=== PATIENT | female | born 1945 | race Caucasian/White ===

== ENCOUNTER 2022-07-12 20:57 | Observation (INO) | payer MEDICARE, MEDICAID, SELFPAY ==
[2022-07-12] VITALS (11 sets, daily range): BP systolic 162–243; BP diastolic 82–132; PULSE 105–120; RESP 17–25; TEMP 37; O2SAT 94–98
--- NOTE | ~2022-07-12 | CT_ITS ---
EXAMINATION: CTA brain carotid DATE: 07/12/2022 21:46 INDICATION: stroke TECHNIQUE: Computed tomographic angiography (CTA) of the head was performed with 100 mL Omnipaque-350 intravenous contrast. Automated exposure control and iterative reconstruction technique were employe d. The dose-length product was 1098.13 mGy-cm. Maximum intensity projection and volume rendered 3D-re constructions were created by the technologist on a separate workstation. COMPARISON: CT brain, same date. FINDINGS: CTA HEAD: No large vessel occlusion, aneurysm, high flow vascular malformation, nidus or extravasation. Calcifi ed plaque involving the bilateral cavernous carotids without significant stenosis. The anterior commu nicating artery is patent. Hypoplastic/absent portion of the intradural distal right vertebral artery . Short segment noncalcified plaque in the basal artery causing mild stenosis. Small patent bilateral posterior communicating arteries. Normal appearing intracerebral veins. CTA NECK: Aortic arch and proximal great vessels: Moderate calcified and noncalcified plaque in the aortic arch and the proximal great vessels. Right common carotid, carotid bifurcation, and internal carotid artery: Calcified plaques in the righ t common carotid without significant stenosis.Calcified and noncalcified plaque at the right carotid bifurcation causing at least mild stenosis. Motion artifact at this level partially obscures the vicente enoch of the bifurcation. There is at least 33% stenosis of the proximal right internal carotid artery relative to normal distal artery lumen diameter (NASCET criteria). Left common carotid, carotid bifurcation, and internal carotid artery: Calcified and noncalcified otoniel que in the proximal left common carotid artery causes mild stenosis. Calcified plaque in the bifurcat ion causes significant stenosis.There is 66% stenosis of the proximal left internal carotid artery re lative to normal distal artery lumen diameter (NASCET criteria). Vertebral arteries: Noncalcified plaque at the origins of the bilateral vertebral arteries with moder ate bilateral stenoses. Calcified plaque in the right distal vertebral artery at the level of C2 caus es moderate stenosis. Calcified plaque in the right distal vertebral artery at the level of C1 causes mild stenosis. Left vertebral artery is dominant. Other findings: Mild emphysematous changes. Periodontal disease and dental caries. Cervical spondylos is. IMPRESSION: 1. No large vessel occlusion. 2. Moderate stenosis (66%) of the proximal left internal carotid artery relative to normal distal art delvin lumen diameter. 3. Moderate stenoses at the origin of the bilateral vertebral arteries and in the distal right verteb ral artery at the level of C2. 4. At least mild stenosis (33%) in the proximal right internal carotid artery relative to normal dist al artery lumen diameter, likely underestimated due to obscuration by motion artifact. 5. Hypoplastic/absent intradural portion of the right distal vertebral artery. 6. Noncalcified plaque in the basilar artery causing mild stenosis. Reviewed, dictated and finalized at location K. F GAUGER IMPRESSION: 1. No large vessel occlusion. 2. Moderate stenosis (66%) of the proximal left internal carotid artery relativ e to normal distal artery lumen diameter. 3. Moderate stenoses at the origin of the bilateral vertebral arteries and in t he distal right vertebral artery at the level of C2. 4. At least mild stenosis (33%) in the proximal right internal carotid artery r elative to normal distal artery lumen diameter, likely underestimated due to ob scuration by motion artifact. 5. Hypoplastic/absent intradural portion of the right distal vertebral artery. 6. Noncalcified
--- NOTE | ~2022-07-12 | CT_ITS ---
EXAMINATION: CT brain wo con DATE: 07/12/2022 21:05 INDICATION: stroke . TECHNIQUE: Computed tomography (CT) of the head was performed without intravenous contrast. The mA wa s adjusted according to patient size. Iterative reconstruction technique was employed. The dose-lengt h product was 605.33 mGy-cm. COMPARISON: None. FINDINGS: No acute intracranial hemorrhage or extra-axial fluid collection. No hydrocephalus, mass, or herniation. No acute ischemic infarct. Unremarkable dural venous sinus attenuation. No acute osseous abnormality. The aerated spaces are clear. Moderate atrophy and chronic white matter change. Atherosclerotic intracranial calcification.. Small old left pontine infarct. Old bilateral lacunar infarcts. IMPRESSION: No acute intracranial process. Results reported telephonically to Dr. Ayala by Dr. Ramirez at 9:12 PM on 07/12/2022. Reviewed, dictated and finalized at location K. WORKING [employer] IMPRESSION: No acute intracranial process. Results reported telephonically to Dr. Ayala by Dr. Ramirez at 9:12 PM on 2022.
--- NOTE | 2022-07-12 21:00 | ECG_ITS ---
Measurements Intervals [place] Rate: 111 P: 49 MS: 175 QRS: 40 QRSD: 73 T: 72 QT: 325 QTc: 443 Interpretive Statements SINUS TACHYCARDIA LOW QRS VOLTAGE IN PRECORDIAL LEADS NONSPECIFIC ST & T-WAVE ABNORMALITY- DIFFUSE LEADS BASELINE ARTIFACT- I, II, III, AVR, AVL, AVF, V4-V6 ABNORMAL ECG NO PREVIOUS ECG AVAILABLE FOR COMPARISON Electronically Signed On 07-13-2022 7:03:27 [employer]ER by Jose Carlos Lisa D.O.
[2022-07-12 21:16] LABS: Basophils Absolute Auto 0.1 K/mm3 (0.0-0.1); Basophils Percent Auto 1.2 % (0.2-1.2); Eosinophils Absolute Auto 0.4 K/mm3 (0-0.3); Eosinophils Percent Auto 4.4 % (0-4.4); Hematocrit 49.5 % (37.0-47.0); Hemoglobin 16.6 g/dL (12.0-15.0); Immature Granulocyte Absolute 0.03 K/mm3 (0.00-0.031); Immature Granulocyte Percent A 0.4 % (0-0.5); Lymphocytes Absolute Auto 1.86 K/mm3 (0.9-3.2); Lymphocytes Percent Auto 22.9 % (18.3-44.2); Mean Corpuscular HGB Conc 33.5 g/dl (32-36); Mean Corpuscular Hemoglobin 31.1 pg (26-34); Mean Corpuscular Volume 92.9 fl (80-100); Mean Platelet Volume 10.2 fl (7.4-10.4); Monocytes Absolute Auto 0.7 K/mm3 (0.1-0.6); Neutrophils Percent Auto 62.1 % (45.5-73.1); Platelet Count Result 316 k/mm3 (150-375); Red Blood Count 5.33 M/mm3 (4.2-5.4); White Blood Count 8.1 K/mm3 (4.5-10.0)
[2022-07-12 21:28] LABS: Alanine Aminotransferase 14 U/L (6-35); Albumin Level 4.6 g/dL (3.5-5.1); Alkaline Phosphatase 86 U/L (38-126); Anion Gap 6 mmol/L (8-16); Aspartate Amino Transferase 23 U/L (14-36); Bilirubin,Total 0.5 mg/dL (0.2-1.3); Blood Urea Nitrogen 11 mg/dL (7-17); Calcium 9.3 mg/dL (8.4-10.2); Carbon Dioxide 26 mmol/L (22-30); Chloride 99 mmol/L (98-107); Estimated Glomerular Filt Rate > 60; Glucose 107 mg/dL (65-110); Potassium 3.9 mmol/L (3.4-5.0); Sodium 131 mmol/L (137-145)
[2022-07-12 21:35] LABS: Appearance Urine Clear (Clear); Bilirubin Urine Negative (Negative); Blood Urine Trace-intact (Negative); Color Urine Light Yellow (Yellow); Glucose Urine UA Negative (Negative); Ketones Urine Negative (Negative); Leukocyte Esterase Ur Negative LEU/UL (Negative); Nitrate Urine Negative (Negative); Protein Urine 1+ mg/dL (Negative); Specific Grav Ur 1.015 (1.001-1.035); Urobilinogen Urine 0.2 mg/dL (<2.0); pH Urine 7.5 (5.0-9.0)
[2022-07-12 21:40] LABS: RBC Urine 0-2 /hpf (0-2); Squamous Epithelial Cell Urine Rare /hpf (Few); WBC Urine 0-3 /hpf
[2022-07-12 21:40] LABS: Troponin I < 0.012 ng/mL (0.000-0.034)
[2022-07-12 21:47] LABS: Add Urine Microscopic? YES
--- NOTE | 2022-07-12 22:08 | ED.NEUROSD ---
HPI - Neuro Symptoms/Deficit General Chief Complaint: Suspected CVA <Aurelio Segura DO - Last Filed: 07/13/22 06:56> Stated Complaint: CVA <Aurelio Segura DO - Last Filed: 07/13/22 06:56> Time Seen by Provider: 07/12/22 21:00 <Aurelio Segura DO - Last Filed: 07/13/22 06:56> History of Present Illness HPI Narrative: 76-year-old female presents via EMS after she noticed weakness in her left upper and lower extremities. Neighbor had reported to EMS that patient had a prior facial droop. Patient does believe she had a prior stroke although she never sought medical care. She had a very stressful day years ago and noticed that her handwriting has been different ever since. <Aurelio Segura DO - Last Filed: 07/13/22 06:56> Related Data Allergies/Adverse Reactions: Allergies Allergy/AdvReac Type Severity Reaction Status Date / Time No Known Allergies Allergy Verified 07/12/22 22:19 <Aurelio Segura DO - Last Filed: 07/13/22 06:56> Review of Systems Review of Systems: CONSTITUTIONAL: Denies fever, chills, or sweats. EYES: Denies visual changes, redness, or discharge. ENT: Denies rhinorrhea, congestion, sore throat, or otalgia. CARDIOVASCULAR: Denies chest pain, palpitations, or edema. RESPIRATORY: Denies cough or dyspnea. GASTROINTESTINAL: Denies abdominal pain, nausea, vomiting, or diarrhea. GENITOURINARY: Denies dysuria or hematuria. SKIN: Denies rash or itching. MUSCULOSKELETAL: Denies back pain, joint pain, or myalgia. NEUROLOGIC: Denies headache, numbness, or weakness. PSYCHIATRIC: Denies anxiety or depression. <Aurelio Segura DO - Last Filed: 07/13/22 06:56> [facility] Surgical History Surgical History: Surgical History H/O elbow surgery History of total knee arthroplasty right <Aurelio Segura DO - Last Filed: 07/13/22 06:56> Exam Narrative: GENERAL: Well-appearing, well-nourished, and in no acute distress. HEAD: Normocephalic, atraumatic. EYES: PERRLA and EOMI. ENT: Nares clear, no rhinorrhea or epistaxis. Mucous membranes moist. NECK: Supple. CHEST: Clear to auscultation. No respiratory distress. HEART: Regular rate and rhythm. No murmur heard. Normal peripheral pulses. ABDOMEN: Soft, nontender, nondistended, normal active bowel sounds. EXTREMITIES: Normal range of motion. No edema. SKIN: Warm, dry, no rash. NEURO: No focal deficits. Alert and oriented x3. PSYCH: Normal mood and affect. <Aurelio Segura, - Last Filed: 07/13/22 06:56> Course Course Emergency Course: Patient turned over myself at shift change awaiting bed placement at [facility] patient is awake and alert x4 muscle strength is 5 out of 5 in the bilateral upper and lower extremities no facial droop cranial nerves II through XII grossly intact bilaterally Patient still waiting for a bed at 13 30 Will admitted to our facility at this time Discussed with JOSE Portillo for Dr. Mead agrees with admission Discussed with Dr. Anthony agrees with consult recommends patient on Plavix 75 mg added to current medication regimen Discussed with patient and family results of workup and diagnosis. Discussed need for admission. Patient and family understand and agree to current treatment plan <Steven Brush, - Last Filed: 07/13/22 13:48> Vital Signs Vital signs: Vital Signs Temperature 98.6 F 07/12/22 20:48 Pulse Rate 114 H 07/12/22 20:48 Respiratory Rate 20 07/12/22 20:48 Blood Pressure 234/112 H 07/12/22 20:48 Pulse Oximetry 97 07/12/22 20:48 Oxygen Delivery Room Air 07/12/22 20:48 Temperature 98.7 F 07/13/22 07:36 Pulse Rate 83 07/13/22 13:01 Respiratory Rate 23 H 07/13/22 13:01 Blood Pressure 137/84 07/13/22 13:01 Pulse Oximetry 100 07/13/22 12:45 Oxygen Delivery Room Air 07/12/22 20:48 <DO Nichole Rico D.C. Last Filed: 07/13/22 06:5
[2022-07-12 22:10] LABS: Influenza A QL RT-PCR Negative (Negative); Influenza B QL RT-PCR Negative (Negative); RSV RNA, RT-PCR Negative (Negative); SARS-CoV-2 RNA PCR Negative
[2022-07-12] MEDS: Please add drug allergy info to patient profile. 1 EACH XX (22:19)
[2022-07-12] MEDS: NITROGLYCERIN/D5W 200 MCG/ML 50 MG/250 ML BTL IV CONT (22:34)
--- NOTE | 2022-07-12 23:33 | PM.IMHP ---
H&P: HPI History of Present Illness Date/Time: 07/12/22 23:33 Meds Home Medications and Allergies Allergies Allergy/AdvReac Type Severity Reaction Status Date / Time No Known Allergies Allergy Verified 07/12/22 22:19 Vital Signs Vital Signs - 24 hr 07/12/22 20:48 07/12/22 20:48 07/12/22 21:15 Temperature 37.0 C Pulse Rate 114 H 114 H 114 H Respiratory Rate 20 20 Blood Pressure 234/112 H 234/112 H Pulse Oximetry 97 Oxygen Delivery Room Air 07/12/22 22:34 Temperature Pulse Rate 106 H Respiratory Rate Blood Pressure 172/107 H Pulse Oximetry Oxygen Delivery H&P: Results Labs Labs: Short CBC 07/12/22 Range/Units 21:10 WBC 8.1 (4.5-10.0) K/mm3 Hgb 16.6 H (12.0-15.0) g/dL Hct 49.5 H (37.0-47.0) % Plt Count 316 (150-375) k/mm3 BMP 07/12/22 21:10 Sodium 131 L Potassium 3.9 Chloride 99 Carbon Dioxide 26 BUN 11 Creatinine 0.70 Glucose 107 Calcium 9.3 Cardiac Enzymes 07/12/22 Range/Units 21:10 Troponin I < 0.012 (0.000-0.034) ng/mL Liver Function 07/12/22 Range/Units 21:10 Total Bilirubin 0.5 (0.2-1.3) mg/dL AST 23 (14-36) U/L ALT 14 (6-35) U/L Alkaline Phosphatase 86 (38-126) U/L Albumin 4.6 (3.5-5.1) g/dL Urine 07/12/22 Range/Units 21:29 Urine Color Light yellow (Yellow) Urine Appearance Clear (Clear) Urine pH 7.5 (5.0-9.0) Ur Specific [place] 1.015 (1.001-1.035) Urine Protein 1+ H (Negative) mg/dL Urine Glucose (UA) Negative (Negative) mg/dL
[2022-07-12] MEDS: ASPIRIN 325 MG TABLET PO (23:56)
[2022-07-13] VITALS (55 sets, daily range): BP systolic 137–240; BP diastolic 63–110; PULSE 71–109; RESP 13–27; TEMP 36.6–37.1; O2SAT 95–100
[2022-07-13] MEDS: SODIUM CHLORIDE 0.9% IV 500 ML 999 ML (00:38)
[2022-07-13 07:58] LABS: Glucose Point of Care 103 mg/dl (65-105)
--- NOTE | 2022-07-13 08:07 | PC.NURSE ---
Pt requested us to call [phone] to speak with her home health worker but no one picked up.
--- NOTE | 2022-07-13 08:42 | PC.NURSE ---
Pt neighbor Danika called and asking information about pt condition. Pt gave permission for this RN to speak with her. She states she spoke with Terra, her home health nurse.
--- NOTE | 2022-07-13 09:48 | PC.NURSE ---
ragini called for bed status = no bed pt remains on wait list possibly later tonight or tomorrow 1*27*23
--- NOTE | 2022-07-13 09:53 | PC.NURSE ---
Pt moved hospital bed at this time
--- NOTE | 2022-07-13 13:52 | PM.IMHP ---
H&P: HPI History of Present Illness Date/Time: 07/13/22 13:52 Chief Complaint: Facial droop Narrative: This is a 76-year-old female patient who I met last night in the emergency room. The patient came in complaining of left facial droop is some left upper lower extremity weakness that was coming and going. The patient is a very poor historian. The patient thinks that she may have had a previous stroke she is not sure. The patient was negative for influenza a B RSV and COVID. Head neck CTA was read as the following. No large vessel occlusion. 2. Moderate stenosis (66%) of the proximal left internal carotid artery relative to normal distal artery lumen diameter. 3. Moderate stenoses at the origin of the bilateral vertebral arteries and in the distal right vertebral artery at the level of C2. 4. At least mild stenosis (33%) in the proximal right internal carotid artery relative to normal distal artery lumen diameter, likely underestimated due to obscuration by motion artifact. 5. Hypoplastic/absent intradural portion of the right distal vertebral artery. 6. Noncalcified plaque in the basilar artery causing mild stenosis. The patient is not on any medication at home. Her blood pressure was extremely high and she was started on a nitro drip last night. The freight associate was notified and suggested that the patient be transferred. The patient is awaiting a bed [facility]. Her symptoms have now resolved. Neurology has been consulted. Head CT was read as the following no acute intracranial process. The patient is now being admitted to observation status to hospital awaiting a bed for [facility]. Date of service is 07/13/2022. Review of Systems Review of Systems: See HPI All systems reviewed & are unremarkable except as noted in HPI and below Constitutional: Constitutional: Reports as per HPI and Reports no additional constitutional complaints Eyes: Eyes: Reports as per HPI and Reports no additional eye complaints ENT: Reports system reviewed and no additional complaints, except as documented and Reports Normal hearing present Cardiovascular: Cardiovascular: Reports no additional cardiovascular complaints Respiratory: Respiratory: Reports no additional respiratory complaints and Reports no additional respiratory complaints Gastrointestinal: Gastrointestinal: Reports as per HPI and Reports no additional gastrointestinal complaints Musculoskeletal: Musculoskeletal: Reports no additional musculoskeletal complaints Integumentary/Breasts: Skin/Breast: Reports system reviewed and no additional complaints, except as docu and Reports as per HPI Neurologic: Reports system reviewed and no additional complaints, except as documented, Reports as per HPI and Reports Normal hearing present Psychiatric: Psychiatric: Reports no additional psychiatric complaints and Reports as per HPI Endocrine: Endocrine: Reports no additional endocrine complaints Hematologic/Lymphatic: Hematologic/Lymphatic: Reports no additional hematologic/lymphatic complaints Allergic/Immunologic: Allergic/Immunologic: Reports no additional allergic/immunologic complaints [facility] Past Medical History Medical History (Updated 07/13/22 @ 17:04 by Lindsey Munoz NP) Dupuytrens contracture PTSD (post-traumatic stress disorder) Surgical History Surgical History (Updated 07/13/22 @ 16:50 by Lindsey Munoz NP) H/O elbow surgery H/O wisdom tooth extraction History of bilateral carpal tunnel release History of total knee arthroplasty right Family History Family History (Updated 07/13/22 @ 16:55 by Lindsey Munoz NP) Father Acute myocardial infarction Social History Social History (Updated 07/13/22 @ 16:56 by Lindsey Munoz NP) Social History: The patient is . The patient continues to smoke at least a pack or more of cigarettes a day. The patient states that she drinks a case of beer a week. She denies any marijuana or illicit drugs. The patient
[2022-07-14] VITALS: PULSE 85
[2022-07-14 00:34] VITALS: BP 180/80
--- NOTE | 2022-07-14 04:31 | PC.NURSE ---
clothes, purse, and 765$ with patient at discharge. CARLOS Castellano at [place] aware of [place] value on hand.
== END 2022-07-14 04:33 ==
LOC: ANHED 07-13 10:27 → ANH3MEDSUR 07-13 14:45
PROVIDERS: Admitting Provider Student in an Organized Health Care Education/Training Program; Emergency Provider Emergency Medicine; PCP Internal Medicine; Visit Provider Student in an Organized Health Care Education/Training Program
DX: I63.9 Cerebral infarction, unspecified (principal); I10 Essential (primary) hypertension; F17.210 Nicotine dependence, cigarettes, uncomplicated; Z20.822 Contact with and (suspected) exposure to COVID-19
CPT/HCPCS: 36415; 70450; 70496; 70498; 80053; 81001; 82948; 84484; 85025; 87637; 93005; 96365; 96366; 99285; A9270; G0378; J7040; Q9967

== ENCOUNTER 2023-09-29 10:37 | Inpatient (IN) | payer MEDICARE, MEDICAID, SELFPAY ==
[2023-09-29] VITALS (15 sets, daily range): BP systolic 114–158; BP diastolic 49–87; PULSE 64–81; RESP 11–16; TEMP 36.2–36.5; O2SAT 96–98; BMI 20.2
--- NOTE | ~2023-09-29 | XR_ITS ---
EXAMINATION: XR chest 2V DATE: 09/29/2023 16:25 INDICATION: Syncope. TECHNIQUE: Frontal and lateral views of the chest were obtained. COMPARISON: None. FINDINGS: A calcified left lung nodule is consistent with old granulomatous disease. No pleural effus ion or pneumothorax. The heart size is normal. There is mild chronic anterior wedging of a midthoraci c vertebral body. IMPRESSION: 1. No acute cardiopulmonary disease. Reviewed, dictated and finalized at location E.
--- NOTE | ~2023-09-29 | XR_ITS ---
MODIFIED ESOPHAGRAM HISTORY: Trouble swallowing TECHNIQUE: Modified barium esophagram was performed on 10/01/2023. I administered fluoroscopy and perf ormed the exam with speech pathologist. Patient was seated for lateral fluoroscopic imaging for rbuia stion of thin liquids, pudding, solids and quantified amounts, followed by thin liquids in uncontroll ed amounts. This was recorded on tape. A single fluoroscopic spot image was also recorded. The DAP fo r this procedure was 2.246 Gycm2. The amount of fluoroscopy time used during this procedure was 3.8 m inutes. FINDINGS: Oral stage: Adequate function. Pharyngeal stage: Reduced laryngeal elevation and adduction. Reduced tongue base retraction and phary ngeal squeeze. There is vallecular and piriform sinus residue. There is laryngeal penetration and asp iration. Cervical/esophageal stage: Adequate function. IMPRESSION: Pharyngeal dysphagia with laryngeal penetration and aspiration. Please correlate with sp eech pathologist findings and specific feeding recommendations. Reviewed, dictated and finalized at location A. IMPRESSION: Pharyngeal dysphagia with laryngeal penetration and aspiration. Pl ease correlate with speech pathologist findings and specific feeding recommenda tions.
--- NOTE | ~2023-09-29 | CT_ITS ---
EXAMINATION: CT abdomen pelvis wo con DATE: 09/30/2023 18:58 INDICATION: Intra-abdominal hemorrhage. TECHNIQUE: Computed tomography (CT) of the abdomen and pelvis was performed without intravenous contr ast. Automated exposure control and iterative reconstruction technique were employed. The dose-length product was 566.88 mGy-cm. COMPARISON: None. FINDINGS: The visualized portions of the lung bases demonstrates mild atelectasis. A calcified left l ena nodule is consistent with old granulomatous disease. No pleural effusion. The heart size is jena l. There are coronary artery calcifications. No pericardial effusion. There are cysts in the kidney l iver measuring up to 7 mm. There is a 7.9 cm hypodense mass in the left hepatic lobe. There is biliar y duct dilatation in left hepatic lobe. The gallbladder, spleen, pancreas, and adrenal glands are nor mal. There are widespread arterial calcifications. There is a 15 mm cyst with peripheral calcificatio ns in right kidney. Left kidney is normal. Stool distends the rectum. The appendix is normal. There a re no pathologically enlarged lymph nodes. There is no free intraperitoneal fluid. There is mild sequins spooler lacey height loss of multiple vertebral bodies. There is moderate lumbar spondylosis. IMPRESSION: 1. Stool distends the rectum. 2. 7.9 cm mass in left hepatic lobe. The differential diagnosis includes focal nodular hyperplasia, h emangioma, and malignancy. Abdomen MRI without and with contrast is recommended. Reviewed, dictated and finalized at location E. IMPRESSION: 1. Stool distends the rectum. 2. 7.9 cm mass in left hepatic lobe. The differential diagnosis includes focal nodular hyperplasia, hemangioma, and malignancy. Abdomen MRI without and with c ontrast is recommended.
--- NOTE | ~2023-09-29 | US_ITS ---
EXAMINATION: US biopsy liver DATE: 10/02/2023 14:45 INDICATION: Liver mass TECHNIQUE: The procedure including the risks and benefits was discussed with the patient. Risks discu ssed included bleeding and infection. The patient understood the risks and agreed to proceed. The sk in overlying the left hepatic lobe was prepped and draped in usual sterile fashion. Anesthetic was a dministered with 1% lidocaine subcutaneously. An 18 gauge core biopsy needle was advanced under cont inuous ultrasound observation to the lesion of interest. 4 core biopsy specimens were obtained. The needle was removed and the entry site was cleaned and dressed. Post procedure ultrasound demonstrat ed no hemorrhage. FINDINGS: Ultrasound images demonstrate biopsy needle advanced into the large mass of concern in the lateral segment of the left hepatic lobe. IMPRESSION: 1. Successful Ultrasound-guided biopsy of a previously noted 7.5 cm mass in the lateral segment of th e left hepatic lobe. Reviewed, dictated and finalized at location A. IMPRESSION: 1. Successful Ultrasound-guided biopsy of a previously noted 7.5 cm mass in the lateral segment of the left hepatic lobe.
--- NOTE | ~2023-09-29 | MR_ITS ---
EXAMINATION: MR abdomen wo/w con DATE: 10/01/2023 12:55 INDICATION: Hepatic mass TECHNIQUE: Magnetic resonance imaging (MRI) of the abdomen was performed without and with 11 mL Multi daisy intravenous contrast. Sequences included coronal T2-weighted SS-FSE, coronal and axial FS 2D-F IESTA, axial STIR FSE, axial T2-weighted SS-FSE, axial T2-weighted FS SS-FSE, axial diffusion-weighte d SE, axial dual-echo T1-weighted FSPGR, and axial and coronal T1-weighted LAVA. Postcontrast axial T 1-weighted LAVA images were obtained in a time course. Postcontrast coronal T1-weighted LAVA images w ere obtained. COMPARISON: None. FINDINGS: Heart size is normal. No pericardial or pleural effusion. 7.5 x 7.1 cm mass in segments 2 and 3 of th e left hepatic lobe with restricted diffusion. The mass demonstrates peripheral arterial phase hypere nhancement surrounding liver with central T2 hyperintense nonenhancing region. The mass remains relat ively hyperenhancing relative to the surrounding liver on the 5 and 10 minute delayed postcontrast im ages. There are some associated moderate intrahepatic biliary ductal dilation at the margins of the m ass. There are at least 3 subcentimeter T2 hyperintense nonenhancing hepatic cysts. Gallbladder, sple en, pancreas and bilateral adrenal glands are normal. There are bilateral nonenhancing T2 hyperintens e renal cysts the largest on the right measuring 1.3 cm. Low signal intensity at the peripheral rim o f the right renal cyst corresponds to a small amount of mural calcification of the prior CT. Visualiz ed portion of the bowels are unremarkable with no obstruction. No pathologically enlarged abdominal o r upper pelvic lymphadenopathy. Mild lumbar and lower thoracic spondylosis with normal bone marrow si gnal throughout. IMPRESSION: 1. 7.5 cm left hepatic mass with associated biliary ductal dilation which raises concern for malignan cy including cholangiocarcinoma or hepatocellular carcinoma. Differential would also include focal no dular hyperplasia although the biliary duct dilation would be atypical. Recommend ultrasound-guided c ore needle biopsy. Reviewed, dictated and finalized at location A. IMPRESSION: 1. 7.5 cm left hepatic mass with associated biliary ductal dilation which raise s concern for malignancy including cholangiocarcinoma or hepatocellular carcino ma. Differential would also include focal nodular hyperplasia although the bili dian duct dilation would be atypical. Recommend ultrasound-guided core needle bi opsy.
--- NOTE | 2023-09-29 10:43 | ECG_ITS ---
SEE SCANNED COPY FOR CONFIRMED REPORT MTDD
--- NOTE | 2023-09-29 11:18 | ED.SYNCOPE ---
HPI - Syncope General Chief Complaint: Syncope Stated Complaint: syncope Time Seen by Provider: 09/29/23 10:42 History of Present Illness HPI narrative: Patient is a 78-year-old female with history of CVA here after a possible syncopal episode from her residential facility. She notes that earlier today she went out to smoke a cigarette, came back inside and fell sleep in her wheelchair. She states that she did not pass out and just fell asleep. 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 She states that she was feeling tired and when they were wheeling her back to her room to go to sleep she fell asleep in her wheelchair. She denies any prodromal chest pain or shortness of breath. Of note she does note that she has had a sore on her right buttocks over the last week, notes it is tender to touch, has not been having any fever chills. She additionally notes that over the last couple of days she has had itching of her bilateral breasts. She notes that she currently feels fine, ?just tired ?. She notes poor PO intake at her facility due to the bad food and largely lives off of Cheese-it crackers. Related Data Home Medications Medication Instructions Recorded Confirmed aspirin 81 mg tablet,delayed 81 mg PO DAILY 11/02/22 11/02/22 release atorvastatin 80 mg tablet 80 mg PO DAILY 11/02/22 11/02/22 cyanocobalamin (vitamin B-12) 100 100 mcg PO DAILY 11/02/22 11/02/22 mcg tablet (Vitamin B-12) hydrochlorothiazide 12.5 mg tablet 12.5 mg PO DAILY 11/02/22 11/02/22 Allergies Allergy/AdvReac Type Severity Reaction Status Date / Time Penicillins Allergy Intermediate Unknown Verified 09/29/23 10:53 Review of Systems Review of Systems: All systems reviewed & are unremarkable except as noted in HPI and below PMFSH Past Medical History Medical History Acute cerebrovascular accident (CVA) Dupuytrens contracture Hypertension Mass of oral cavity PTSD (post-traumatic stress disorder) Smoker Surgical History Surgical History H/O elbow surgery H/O wisdom tooth extraction History of bilateral carpal tunnel release History of total knee arthroplasty right Family History Family History Father Acute myocardial infarction Social History Social History Social History: The patient is . The patient continues to smoke at least a pack or more of cigarettes a day. The patient states that she drinks a case of beer a week. She denies any marijuana or illicit drugs. 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 The patient lives home alone and does not have any children. Code status full code Caffeine-coffee Smoking packs per day: 1 Smoking cigarettes per day: 20.0 Years smoked: 55 Smoking pack-years: 55.00 Smoking status: Current every day smoker Tobacco type: cigarettes Alcohol intake: current Drinks per week: 21 Alcohol use details: beer Substance use: never Lack of Transportation: No Lack of Food: Never True Current Housing: I Have Housing Concerned About Future Housing: No Difficulty Paying Gas/Electric Bills: No Difficulty Paying for Meds: No Currently Unemployed: No Education: High School Diploma/GED Difficulty w/ Childcare or Family Care: No Spiritual care concerns: No Exam Narrative: GENERAL: Well-appearing, well-nourished, and in no acute distress. HEAD: Normocephalic, atraumatic. EYES: PERRLA and EOMI. ENT: Nares clear. Mucous membranes moist. NECK: Supple. CHEST: Clear to auscultation. No respiratory distress. HEART: Regular rate and rhythm. Normal peripheral pulses. ABDOMEN: Soft, nontender, nondistended. EXTREMITI
[2023-09-29] MEDS: LACTATED RINGERS 500 ML 999 ML IV CONT (12:03)
[2023-09-29 12:06] LABS: Basophils Absolute Auto 0.1 K/mm3 (0.0-0.1); Basophils Percent Auto 0.6 % (0.2-1.2); Eosinophils Absolute Auto 0.1 K/mm3 (0-0.3); Eosinophils Percent Auto 1.6 % (0-4.4); Hematocrit 27.1 % (37.0-47.0); Hemoglobin 7.5 g/dL (12.0-15.0); Immature Granulocyte Absolute 0.06 K/mm3 (0.00-0.031); Immature Granulocyte Percent A 0.7 % (0-0.5); Lymphocytes Absolute Auto 0.96 K/mm3 (0.9-3.2); Lymphocytes Percent Auto 11.1 % (18.3-44.2); Mean Corpuscular HGB Conc 27.7 g/dl (32-36); Mean Corpuscular Hemoglobin 19.4 pg (26-34); Mean Corpuscular Volume 70.2 fl (80-100); Mean Platelet Volume 10.5 fl (7.4-10.4); Monocytes Absolute Auto 0.8 K/mm3 (0.1-0.6); Monocytes Percent Auto 9.7 % (2.6-8.5); Neutrophils Absolute Auto 6.6 K/mm3 (1.3-6.7); Neutrophils Percent Auto 76.3 % (45.5-73.1); Platelet Count Result 477 k/mm3 (150-375); Red Blood Count 3.86 M/mm3 (4.2-5.4); Red Cell Distribution Width 17.7 % (11.5-14.5); White Blood Count 8.6 K/mm3 (4.5-10.0)
[2023-09-29 12:30] LABS: Hypochromasia 2+; Platelet Estimate Increased (Adequate)
[2023-09-29 12:31] LABS: Acanthocytes 1+; Ovalocytes 1+; Poikilocytosis 2+; Schistocytes Rare
[2023-09-29 12:41] LABS: Alanine Aminotransferase 14 U/L (6-35); Albumin Level 3.9 g/dL (3.5-5.1); Alkaline Phosphatase 87 U/L (38-126); Anion Gap 8 mmol/L (4-12); Aspartate Amino Transferase 26 U/L (14-36); Bilirubin,Total 0.4 mg/dL (0.2-1.3); Blood Urea Nitrogen 17 mg/dL (7-17); Calcium 9.4 mg/dL (8.4-10.2); Carbon Dioxide 30 mmol/L (22-30); Chloride 97 mmol/L (98-107); Estimated CRCL calculation 49 ml/min; Estimated Glomerular Filt Rate > 60; Glucose 102 mg/dL (65-110); Potassium 2.8 mmol/L (3.4-5.0); Sodium 135 mmol/L (137-145)
[2023-09-29 13:50] LABS: CRP < 0.5 mg/dL (<1.0); Magnesium 2.1 mg/dL (1.6-2.3)
[2023-09-29 13:56] LABS: Troponin I 0.013 ng/mL (0.000-0.034)
[2023-09-29 14:26] LABS: Appearance Urine Cloudy (Clear); Bacteria Urine 4+ /hpf; Bilirubin Urine Negative (Negative); Blood Urine Non-Hemolyzed Trace (Negative); Color Urine Yellow (Yellow); Glucose Urine UA Negative (Negative); IFOB Positive Control Positive; Immunochemical Fecal Occult Bl Negative (N); Ketones Urine Negative (Negative); Leukocyte Esterase Ur 3+ LEU/UL (Negative); Nitrate Urine Positive (Negative); Non Pathogenic Casts 0-2; Protein Urine Trace mg/dL (Negative); RBC Urine 0-2 /hpf (0-2); Specific Grav Ur 1.011 (1.001-1.035); Squamous Epithelial Cell Urine Few /hpf (Few); WBC Urine >100 /hpf (0-3); pH Urine 6.5 (5.0-9.0)
[2023-09-29 14:56] LABS: Add Urine Microscopic? YES
[2023-09-29] MEDS: POTASSIUM CHLORIDE INJ 40 MEQ in SODIUM CHLORIDE 0.9% IV 500 ML 130 MEQ IVPB (15:16)
[2023-09-29] MEDS: POTASSIUM BICARBONATE 25 MEQ TABEF 50 MEQ PO (15:16)
--- NOTE | 2023-09-29 16:02 | PM.IMHP ---
H&P: HPI History of Present Illness Date/Time: 09/29/23 16:02 Chief Complaint: Possible Syncopal Episode Narrative: 78 y/o F presents here with possible syncopal episode with PMH of smoker, HTN, dupuytrens contractures, CVA (06/2022 - residual dysarthria, left sided weakness), mass of the oral cavity (sees ENT, declined scope, first noted in 06/2022). Patient presents here from [facility] via EMS for further evaluation of a possible syncopal episode. Staff reported to EMS that patient was outside smoking and returned inside in her wheelchair, shortly thereafter had possible syncopal episode. Patient reports she had fallen asleep due to poor quality sleep/insomnia secondary to her peripheral neuropathy in her BLE. Does not believe she had a syncopal episode. Denies palpitations, chest pain, shortness of breath. Does report sore to her right buttocks, developed 1 week ago, tender to the touch, with no associated drainage, fever, chills, or body aches. Reporting generalized fatigue secondary to insomnia. States she has not been eating well for some time, does not like the food her facility provides and reports she has been living off of cheese it crackers . No nausea, vomiting, diarrhea, dysuria, hematuria, or urinary frequency. Patient is wheelchair bound post-CVA in Jun 2022 with residual deficits on the L and dysarthria. Denies black or tarry stools. Patient poor historian. Initial VS at presentation: 97.7? F, HR 67, R 16, 120/55, and 98% on RA. ED workup showed: WBC 8.6, Hgb 7.5 (previously 16.6 in 06/2022), platelet count 477, potassium 2.8, creatinine 0.8 and GFR >60, initial troponin 0.013, and UA suspicious for UTI. Stool occult negative. Review of Systems Review of Systems: All systems reviewed & are unremarkable except as noted in HPI and below PMFSH Past Medical History Medical History Acute cerebrovascular accident (CVA) Dupuytrens contracture Hypertension Mass of oral cavity PTSD (post-traumatic stress disorder) Smoker Surgical History Surgical History H/O elbow surgery H/O wisdom tooth extraction History of bilateral carpal tunnel release History of total knee arthroplasty right Family History Family History Father Acute myocardial infarction Social History Social History Social History: The patient is . The patient continues to smoke at least a pack or more of cigarettes a day. The patient states that she drinks a case of beer a week. She denies any marijuana or illicit drugs. 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 The patient lives home alone and does not have any children. Code status full code Caffeine-coffee Smoking packs per day: 1 Smoking cigarettes per day: 20.0 Years smoked: 55 Smoking pack-years: 55.00 Smoking status: Current every day smoker Tobacco type: cigarettes Alcohol intake: former Drinks per week: 20 Alcohol use details: beer Substance use: never Do You Feel Safe in your Home?: Yes Lack of Transportation: No Lack of Food: Never True Current Housing: I Have Housing Concerned About Future Housing: No Difficulty Paying Gas/Electric Bills: No Difficulty Paying for Meds: No Currently Unemployed: No Education: High School Diploma/GED Difficulty w/ Childcare or Family Care: No Spiritual care concerns: No Meds Home Medications and Allergies Home Medications Medication Instructions Recorded Confirmed Type aspirin 81 mg tablet,delayed 81 mg PO DAILY 11/02/22 09/29/23 History release atorvastatin 80 mg tablet 80 mg PO DAILY 11/02/22 09/29/23 History acetaminophen 500 mg tablet 500 mg PO Q6H PRN Pain, Mild 09/29/23 09/29/23 History (Tylenol Extra Strength) bisacodyl 10 mg rectal suppository 10 mg RECTAL U
[2023-09-29 16:55] LABS: Lactate Dehydrogenase 157 U/L (120-246)
[2023-09-29 17:08] LABS: Troponin I < 0.012 ng/mL (0.000-0.034)
[2023-09-29 17:12] LABS: Iron 17 ug/dL (37-170)
[2023-09-29 17:21] LABS: Percent Iron Saturation 4 % (20-50)
[2023-09-29 17:48] LABS: Ferritin 6.28 ng/mL (11.1-264)
--- NOTE | 2023-09-29 18:40 | ADMGEN ---
This patient, Jaleesa Powell, was admitted to 2 Medical Room 242-. Patient/family oriented to hospital policies and general routines including ID bracelet, bed and alarms, visiting hours, pain management, procedures, bathroom and other care routines, personal items, smoking policy, room service/diet, and visiting hours. Information on how to activate the Rapid Response Team has been discussed. Patient/Family are encouraged to report perceived risks to care and to ask questions if they do not understand what they are told or what they should do.
[2023-09-29 19:06] LABS: Folic Acid 16.4 ng/mL (2.76->20)
[2023-09-29 19:43] LABS: Hematocrit 26.6 % (37.0-47.0); Hemoglobin 7.2 g/dL (12.0-15.0)
--- NOTE | 2023-09-29 19:58 | PC.NURSE ---
meds confirmed from CT paperwork
[2023-09-29 20:10] LABS: Troponin I < 0.012 ng/mL (0.000-0.034)
[2023-09-29 20:40] LABS: Anion Gap 9 mmol/L (4-12); Blood Urea Nitrogen 15 mg/dL (7-17); Calcium 9.4 mg/dL (8.4-10.2); Carbon Dioxide 28 mmol/L (22-30); Chloride 101 mmol/L (98-107); Estimated CRCL calculation 61 ml/min; Estimated Glomerular Filt Rate > 60; Glucose 119 mg/dL (65-110); Potassium 3.4 mmol/L (3.4-5.0); Sodium 138 mmol/L (137-145)
[2023-09-29] MEDS: ACETAMINOPHEN 325 MG TABLET 650 MG PO (21:43)
[2023-09-29] MEDS: GABAPENTIN 300 MG CAPSULE 600 MG PO (21:43)
[2023-09-30] VITALS (14 sets, daily range): BP systolic 133–159; BP diastolic 59–76; PULSE 61–87; RESP 16–18; TEMP 36.3–37; O2SAT 92–100
[2023-09-30 05:14] LABS: Basophils Absolute Auto 0.1 K/mm3 (0.0-0.1); Basophils Percent Auto 0.8 % (0.2-1.2); Eosinophils Absolute Auto 0.3 K/mm3 (0-0.3); Eosinophils Percent Auto 4.1 % (0-4.4); Hematocrit 25.9 % (37.0-47.0); Immature Granulocyte Absolute 0.02 K/mm3 (0.00-0.031); Immature Granulocyte Percent A 0.3 % (0-0.5); Lymphocytes Absolute Auto 1.38 K/mm3 (0.9-3.2); Lymphocytes Percent Auto 18.4 % (18.3-44.2); Mean Corpuscular Hemoglobin 19.1 pg (26-34); Mean Corpuscular Volume 70.8 fl (80-100); Mean Platelet Volume 10.3 fl (7.4-10.4); Monocytes Absolute Auto 0.7 K/mm3 (0.1-0.6); Monocytes Percent Auto 8.8 % (2.6-8.5); Neutrophils Absolute Auto 5.1 K/mm3 (1.3-6.7); Neutrophils Percent Auto 67.6 % (45.5-73.1); Platelet Count Result 444 k/mm3 (150-375); Red Blood Count 3.66 M/mm3 (4.2-5.4); Red Cell Distribution Width 17.5 % (11.5-14.5); White Blood Count 7.5 K/mm3 (4.5-10.0)
[2023-09-30 05:26] LABS: Alanine Aminotransferase 13 U/L (6-35); Albumin Level 3.7 g/dL (3.5-5.1); Alkaline Phosphatase 83 U/L (38-126); Anion Gap 4 mmol/L (4-12); Aspartate Amino Transferase 27 U/L (14-36); Bilirubin,Total 0.4 mg/dL (0.2-1.3); Blood Urea Nitrogen 15 mg/dL (7-17); Calcium 9.2 mg/dL (8.4-10.2); Carbon Dioxide 30 mmol/L (22-30); Chloride 101 mmol/L (98-107); Estimated CRCL calculation 53 ml/min; Estimated Glomerular Filt Rate > 60; Glucose 92 mg/dL (65-110); Phosphorus 3.6 mg/dL (2.5-4.5); Potassium 3.2 mmol/L (3.4-5.0); Sodium 135 mmol/L (137-145)
[2023-09-30 05:38] LABS: Anisocytosis 1+; Hypochromasia 2+; Platelet Estimate Adequate (Adequate); Poikilocytosis 1+
[2023-09-30 05:39] LABS: Acanthocytes 1+; Schistocytes Rare
--- NOTE | 2023-09-30 07:17 | PM.IMPN ---
Progress Note: A&P Assessment and Plan (1) Syncope, near: Code(s): R55 - Syncope and collapse Status: Acute Assessment and Plan: - per facility, patient had syncopal event but patient believes she just fell asleep - EKG, initial: Sinus bradycardia with marked rhythm irregularly possible nonconducted PAC, SA block, av block, or sinus pause, nonspecific T-wave abnormality. Poor data quality. - troponin: 0.013 -> <0.012 -> <0.012 - found to be anemic, significant change from prior 1 year ago - UA consistent with UTI - modest hypokalemia - 2.8 - pressure wound to R buttock, does not appear infected but does have some erythema - no symptoms consistent with CAD, however will continue cardiac workup - tele, trend troponin, repeat EKG - daytime fatigue vs CAD, will continue to treat possible contributing factors (anemia, UTI, electrolyte derangement) (2) Acute UTI: Code(s): N39.0 - Urinary tract infection, site not specified Status: Acute Assessment and Plan: UA: Cloudy, non hemolyzed trace blood, positive nitrates, 3+ leuks, greater than 100 wbc's, 4+ bacteria - UC obtained on 09/28, pending - previous micro reviewed: none on file - started on Ceftriaxone on 09/28 (3) Anemia: Qualifiers: Anemia type: unspecified type Qualified Code(s): D64.9 - Anemia, unspecified Code(s): D64.9 - Anemia, unspecified Status: Acute Assessment and Plan: - Hgb 7.5 -> 7.2 -> 7.0 - etiology unknown - guaiac negative - iron 17, TIBC 405, ferritin 6.2, % saturation 4, normal LDH B12 and folate - Iron infusion x3 bags - 1 unit of PRBCs ordered due to Hgb of 7.0 on 09/29 - stool occult negative and denies active bleeding - Hold ASA for now - Protonix 40 mg BID - trend (4) Acute hypokalemia: Code(s): E87.6 - Hypokalemia Status: Acute Assessment and Plan: - K 2.8 - replete: 50 PO and 40 IVPB - repeat K 3.2, given 40 meq PO - trend electrolytes (5) Pressure ulcer: Code(s): L89.90 - Pressure ulcer of unspecified site, unspecified stage Status: Acute Assessment and Plan: - patient utilizes wheelchair, suspect wound secondary to pressure - very mild surrounding erythema, appears more consistent with pressure wound stage 2 - wound care consulted - monitor for worsening erythema (6) Hypertension: Code(s): I10 - Essential (primary) hypertension Status: Acute Assessment and Plan: - continue home medications: Hydrochlorothiazide 25 mg daily - monitor Subjective Date/time seen: 09/30/23 07:17 Interval history: Patient is doing well today. She states that she has a good appetite and is drinking well. At her nursing facility she only eats crackers although she says that after further questioning she does sometimes eat other things it the [facility] provides. She does appear to be severely iron deficient and this was explained to the patient. She was started on iron infusion. Patient's hemoglobin this morning was 17 she was given 1 unit of PRBC. She is not having any urinary symptoms. She does say that her buttock is sore. Exam Narrative: GENERAL: Comfortable, no acute distress HENMT: moist mucous membranes EYES: EOM intact b/l NECK: no lymphadenopathy RESPIRATORY: clear to auscultation, no increased respiratory effort CARDIO: Regular rate and rhythm GI: soft, nontender, bowel sounds present SKIN/EXTREMITIES: no rashes, no edema, no redness or tenderness NEURO: PROM intact, answers questions appropriately, A&O x3 Objective Data Vital Signs Vital Signs: Vital Signs - 24 hr 09/29/23 10:37 09/29/23 18:00 09/29/23 11:02 Temperature 97.7 F Pulse Rate 67 70 67 Respiratory Rate 16 16 12 Blood Pressure 120/55 L 158/68 H 114/56 L Pulse Oximetry 98 96 98 Oxygen Delivery Room Air 09/29/23 11:46 09/29/23 12:45 09/29/23 13:31 Temperature Pulse Rate 64 65
[2023-09-30] MEDS: GABAPENTIN 300 MG CAPSULE 600 MG PO ×3 (09:10→17:42)
[2023-09-30] MEDS: THIAMINE HCL 100 MG TABLET PO (09:10)
[2023-09-30] MEDS: ATORVASTATIN 40 MG TABLET 80 MG PO (09:10)
[2023-09-30] MEDS: DOCUSATE SODIUM 100 MG CAPSULE PO (09:10)
[2023-09-30] MEDS: hydroCHLOROthiazide 25 MG TABLET PO (09:10)
[2023-09-30] MEDS: CHOLECALCIFEROL 1,000 UNITS TABLET 2000 UNITS PO (09:10)
[2023-09-30] MEDS: POTASSIUM CHLORIDE 20 MEQ PACKET (FOR LIQUID) 40 MEQ PO (09:27)
[2023-09-30] MEDS: PANTOPRAZOLE 40 MG TABLET PO ×2 (09:27→20:20)
[2023-09-30] MEDS: FERROUS GLUCONATE 324 MG TABLET PO (09:28)
[2023-09-30] MEDS: SODIUM CHLORIDE 0.9% IV 250 ML 30 ML IV CONT (09:39)
[2023-09-30] MEDS: MENTHOL 10% / METHYL SALICYLATE 15% 57 GM TUBE 1 APPLIC TOPICAL (10:20)
[2023-09-30] MEDS: ACETAMINOPHEN 325 MG TABLET 650 MG PO ×2 (12:27→23:55)
[2023-09-30] MEDS: IRON SUCROSE COMPLEX 500 MG in SODIUM CHLORIDE 0.9% IV 250 ML 79 MG IVPB (14:08)
[2023-09-30 15:29] LABS: Hemoglobin 8.7 g/dL (12.0-15.0)
[2023-10-01] VITALS (8 sets, daily range): BP systolic 142–150; BP diastolic 51–63; PULSE 66–77; RESP 12–18; TEMP 36.1–36.7; O2SAT 96–99
[2023-10-01] MEDS: ACETAMINOPHEN 325 MG TABLET 650 MG PO ×3 (05:18→17:02)
[2023-10-01 07:33] LABS: Hematocrit 32.8 % (37.0-47.0); Hemoglobin 9.8 g/dL (12.0-15.0); Mean Corpuscular HGB Conc 29.9 g/dl (32-36); Mean Corpuscular Hemoglobin 22.2 pg (26-34); Mean Corpuscular Volume 74.2 fl (80-100); Mean Platelet Volume 10.3 fl (7.4-10.4); Platelet Count Result 397 k/mm3 (150-375); Red Blood Count 4.42 M/mm3 (4.2-5.4); Red Cell Distribution Width 19.9 % (11.5-14.5); White Blood Count 7.5 K/mm3 (4.5-10.0)
[2023-10-01 07:40] LABS: Anion Gap 7 mmol/L (4-12); Blood Urea Nitrogen 13 mg/dL (7-17); Calcium 9.8 mg/dL (8.4-10.2); Carbon Dioxide 28 mmol/L (22-30); Chloride 100 mmol/L (98-107); Estimated CRCL calculation 53 ml/min; Estimated Glomerular Filt Rate > 60; Glucose 100 mg/dL (65-110); Potassium 4.3 mmol/L (3.4-5.0); Sodium 135 mmol/L (137-145)
[2023-10-01] MEDS: CHOLECALCIFEROL 1,000 UNITS TABLET 2000 UNITS PO (10:23)
[2023-10-01] MEDS: ATORVASTATIN 40 MG TABLET 80 MG PO (10:24)
[2023-10-01] MEDS: hydroCHLOROthiazide 25 MG TABLET PO (10:24)
[2023-10-01] MEDS: GABAPENTIN 300 MG CAPSULE 600 MG PO ×3 (10:24→16:53)
[2023-10-01] MEDS: FERROUS GLUCONATE 324 MG TABLET PO (10:24)
[2023-10-01] MEDS: PANTOPRAZOLE 40 MG TABLET PO ×2 (10:25→20:35)
[2023-10-01] MEDS: THIAMINE HCL 100 MG TABLET PO (10:25)
[2023-10-01] MEDS: IRON SUCROSE COMPLEX 500 MG in SODIUM CHLORIDE 0.9% IV 250 ML 79 MG IVPB (13:13)
--- NOTE | 2023-10-01 14:10 | PM.IMPN ---
Progress Note: A&P Assessment and Plan (1) Syncope, near: Code(s): R55 - Syncope and collapse Status: Acute Assessment and Plan: - per facility, patient had syncopal event but patient believes she just fell asleep - EKG, initial: Sinus bradycardia with marked rhythm irregularly possible nonconducted PAC, SA block, av block, or sinus pause, nonspecific T-wave abnormality. Poor data quality. - troponin: 0.013 -> <0.012 -> <0.012 - found to be anemic, significant change from prior 1 year ago - UA consistent with UTI - modest hypokalemia - 2.8 - pressure wound to R buttock, does not appear infected but does have some erythema - no symptoms consistent with CAD, however will continue cardiac workup - tele, trend troponin, repeat EKG - daytime fatigue vs CAD, will continue to treat possible contributing factors (anemia, UTI, electrolyte derangement) (2) Acute UTI: Code(s): N39.0 - Urinary tract infection, site not specified Status: Acute Assessment and Plan: UA: Cloudy, non hemolyzed trace blood, positive nitrates, 3+ leuks, greater than 100 wbc's, 4+ bacteria - UC positive for E. Coli - started on Ceftriaxone on 09/28, transitioned to cefdinir to start 10/01 (3) Aspiration of food: Code(s): T17.928A - Food in respiratory tract, part unspecified causing other injury, initial encounter; W44.F3XA - Food entering into or through a natural orifice, initial encounter Status: Acute Assessment and Plan: Patient was having some difficulty swallowing and nurse noticed patient coughing a lot after eating and drinking. Speech was consulted. Modified barium swallow on 10/01/2023. MBS showed pharyngeal dysphagia and laryngeal penetration aspiration. Diet recommended: thickened liquids (moderately thick) and minced and moist. (4) Anemia: Qualifiers: Anemia type: unspecified type Qualified Code(s): D64.9 - Anemia, unspecified Code(s): D64.9 - Anemia, unspecified Status: Acute Assessment and Plan: - Hgb 7.5 -> 7.2 -> 7.0 -> 9.8 - etiology unknown, appears to be iron deficiency - guaiac negative - iron 17, TIBC 405, ferritin 6.2, % saturation 4, normal LDH B12 and folate - Iron infusion x3 bags - 1 unit of PRBCs ordered due to Hgb of 7.0 on 09/29 - stool occult negative and denies active bleeding - Hold ASA for now - Protonix 40 mg BID - trend (5) Acute hypokalemia: Code(s): E87.6 - Hypokalemia Status: Resolved Assessment and Plan: - replenish as nessessary - trend electrolytes (6) Pressure ulcer: Code(s): L89.90 - Pressure ulcer of unspecified site, unspecified stage Status: Acute Assessment and Plan: - patient utilizes wheelchair, suspect wound secondary to pressure - very mild surrounding erythema, appears more consistent with pressure wound stage 2 - wound care consulted - monitor for worsening erythema (7) Hypertension: Code(s): I10 - Essential (primary) hypertension Status: Acute Assessment and Plan: - continue home medications: Hydrochlorothiazide 25 mg daily - monitor Subjective Date/time seen: 10/01/23 14:10 Exam Narrative: GENERAL: Comfortable, no acute distress HENMT: moist mucous membranes EYES: EOM intact b/l NECK: no lymphadenopathy RESPIRATORY: clear to auscultation, no increased respiratory effort CARDIO: Regular rate and rhythm GI: soft, nontender, bowel sounds present SKIN/EXTREMITIES: no rashes, no edema, no redness or tenderness NEURO: PROM intact, answers questions appropriately, A&O x3 Objective Data Vital Signs Vital Signs: Vital Signs - 24 hr 09/30/23 16:00 09/30/23 19:18 09/30/23 20:00 Temperature 98.2 F Pulse Rate 70 65 61 Respiratory Rate 18 Blood Pressure 137/65 Pulse Oximetry 92 Oxygen Delivery 09/30/23 20:00 10/01/23 00:00 10/01/23 04:00 Temperature Pulse R
--- NOTE | 2023-10-01 16:11 | PCSTNOTE ---
Please refer to the Bedside Swallow Evaluation in the EMR. Please note, silent aspiration cannot be ruled out at bedside.
--- NOTE | 2023-10-01 16:11 | PCSTNOTE ---
Please refer to the Modified Barium Swallow Evaluation in the EMR.
[2023-10-01 16:38] LABS: INR 1.1; Prothrombin Time 15.2 Seconds (11.1-14.7)
[2023-10-01 16:39] LABS: Partial Thromboplastin Time 47.6 Seconds (22.3-36.8)
[2023-10-02] VITALS (8 sets, daily range): BP systolic 138–156; BP diastolic 62–75; PULSE 71–90; RESP 12–14; TEMP 36.3–37.1; O2SAT 96–99
[2023-10-02] MEDS: ACETAMINOPHEN 325 MG TABLET 650 MG PO (06:31)
[2023-10-02 09:03] LABS: Hemoglobin 9.8 g/dL (12.0-15.0); Mean Corpuscular HGB Conc 28.8 g/dl (32-36); Mean Corpuscular Hemoglobin 21.5 pg (26-34); Mean Corpuscular Volume 74.6 fl (80-100); Mean Platelet Volume 10.6 fl (7.4-10.4); Platelet Count Result 448 k/mm3 (150-375); Red Blood Count 4.56 M/mm3 (4.2-5.4); Red Cell Distribution Width 21.5 % (11.5-14.5)
[2023-10-02 09:07] LABS: Anion Gap 8 mmol/L (4-12); Blood Urea Nitrogen 11 mg/dL (7-17); Calcium 9.8 mg/dL (8.4-10.2); Carbon Dioxide 26 mmol/L (22-30); Chloride 101 mmol/L (98-107); Estimated CRCL calculation 61 ml/min; Estimated Glomerular Filt Rate > 60; Glucose 95 mg/dL (65-110); Potassium 3.7 mmol/L (3.4-5.0); Sodium 135 mmol/L (137-145)
--- NOTE | 2023-10-02 09:47 | PCSTNOTE ---
Therapist came to see patient to instruct her in the use of safe swallowing strategies and three initial strengthening exercises for swallowing. Patient refused this date stating she was leaving for a liver biopsy and that at this time she was more concerned about that, convinced there would be cancer and she was not interested in participating in direct swallowing therapy tasks at this time. She had noticeable slurred speech, sometimes difficult to understand her secondary to reduced consonant precision and low vocal volume. At this time, Speech Therapy will not be continued. Hospitalist notified.
[2023-10-02] MEDS: PANTOPRAZOLE 40 MG TABLET PO (11:31)
[2023-10-02] MEDS: FERROUS GLUCONATE 324 MG TABLET PO (11:32)
[2023-10-02] MEDS: CHOLECALCIFEROL 1,000 UNITS TABLET 2000 UNITS PO (11:33)
[2023-10-02] MEDS: ATORVASTATIN 40 MG TABLET 80 MG PO (11:35)
[2023-10-02] MEDS: GABAPENTIN 300 MG CAPSULE 600 MG PO ×2 (11:37→17:29)
[2023-10-02] MEDS: CEFDINIR 300 MG CAPSULE PO (11:39)
[2023-10-02] MEDS: hydroCHLOROthiazide 25 MG TABLET PO (11:41)
[2023-10-02] MEDS: THIAMINE HCL 100 MG TABLET PO (11:42)
[2023-10-02] MEDS: IRON SUCROSE COMPLEX 500 MG in SODIUM CHLORIDE 0.9% IV 250 ML 79 MG IVPB (11:44)
--- NOTE | 2023-10-02 13:37 | PM.DS ---
DS: Admitting Diagnosis Discharge Date 10/02/23 Admitting Diagnosis UTI, syncope DS: Discharge Diagnosis Discharge Diagnosis (1) Syncope, near: Code(s): R55 - Syncope and collapse Status: Acute (2) Acute UTI: Code(s): N39.0 - Urinary tract infection, site not specified Status: Acute (3) Aspiration of food: Code(s): T17.928A - Food in respiratory tract, part unspecified causing other injury, initial encounter; W44.F3XA - Food entering into or through a natural orifice, initial encounter Status: Acute (4) Anemia: Qualifiers: Anemia type: unspecified type Qualified Code(s): D64.9 - Anemia, unspecified Code(s): D64.9 - Anemia, unspecified Status: Acute (5) Acute hypokalemia: Code(s): E87.6 - Hypokalemia Status: Resolved (6) Pressure ulcer: Code(s): L89.90 - Pressure ulcer of unspecified site, unspecified stage Status: Acute (7) Hypertension: Code(s): I10 - Essential (primary) hypertension Status: Acute DS: Summary Hospital Course Hospital Course: 78 y/o F presents here with possible syncopal episode with PMH of smoker, HTN, dupuytrens contractures, 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 Patient presents here from [facility] via EMS for further evaluation of a possible syncopal episode.? Staff reported to EMS that patient was outside smoking and returned inside in her wheelchair, shortly thereafter had possible syncopal episode.? 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 Does not believe she had a syncopal episode.? Denies palpitations, chest pain, shortness of breath.?No nausea, vomiting, diarrhea, dysuria, hematuria, or urinary frequency. Denies black or tarry stools. Patient poor historian. ED workup showed:? WBC 8.6, Hgb 7.5 (previously 16.6 in 06/2022), platelet count 477, potassium 2.8, creatinine 0.8 and GFR >60, initial troponin 0.013, and UA suspicious for UTI.? Stool occult negative. on 09/30/2023 patient's hemoglobin dropped down to 7 and she received 1 unit PRBCs. Due to patient's anemia we did a CT scan of her abdomen pelvis which showed a liver mass. I had called nurse practitioner for oncology to discuss the results with her. She recommended a biopsy of the liver mass and an outpatient follow-up with her. patient was treated with Rocephin for her UTI. Urine culture came back positive for E coli pansensitive. Patient was then transitioned to cefdinir. It is likely the patient's anemia is related to this liver mass. Patient is agreeable to biopsy. Patient discharge after biopsy. Nurse practitioner from Hematology and Oncology agreed to follow with the patient. Her labs and vital signs are stable and she is medically cleared for discharge at this time. Time Spent with Patient Time attestation: Total time spent providing and/or coordinating discharge services: Exam Narrative: GENERAL: Comfortable, no acute distress HENMT: moist mucous membranes EYES: EOM intact b/l NECK: no lymphadenopathy RESPIRATORY: clear to auscultation, no increased respiratory effort CARDIO: Regular rate and rhythm GI: soft, nontender, bowel sounds present SKIN/EXTREMITIES: no rashes, no edema, no redness or tenderness NEURO: PROM intact, answers questions appropriately, A&O x3 DS: Data Data Completed and Pending Labs on day of discharge: Labs from last 24 hours 10/02/23 10/01/23 08:23 16:17 WBC 10.0 RBC 4.56 Hgb 9.8 L Hct 34.0 L MCV 74.6 L MCH 21.5 L MCHC 28.8 L RDW 21.5 H Plt Count 448 H MPV 10.6 H PT 15.2 H INR 1.1 APTT 47.6 H Sodium 135 L Potassium 3.7 Chloride 101 Carbon Dioxide 26 Anion Gap 8 BUN 11 Creatinine 0.60 L Estim Creat Clear Calc 61 Estimated GFR > 60 Glucose 95 Calcium 9.8
[2023-10-02 17:13] LABS: SARS-CoV-2 RNA PCR Negative (Negative)
== END 2023-10-02 19:37 | DRG 436 ==
LOC: ANHED 16:25 → ANH2MED 18:13
PROVIDERS: Internal Medicine Critical Care Medicine; Student in an Organized Health Care Education/Training Program; Admitting Provider General Practice; Emergency Provider Student in an Organized Health Care Education/Training Program; PCP Family Medicine; Visit Provider General Practice
DX: C22.7 Other specified carcinomas of liver (principal); I69.354 Hemiplegia and hemiparesis following cerebral infarction affecting left non-dominant side; N39.0 Urinary tract infection, site not specified; R55 Syncope and collapse; D63.0 Anemia in neoplastic disease; B96.20 Unspecified Escherichia coli [E. coli] as the cause of diseases classified elsewhere; T17.320A Food in larynx causing asphyxiation, initial encounter; G62.9 Polyneuropathy, unspecified; L89.312 Pressure ulcer of right buttock, stage 2; E87.6 Hypokalemia; I10 Essential (primary) hypertension; F43.10 Post-traumatic stress disorder, unspecified; F17.210 Nicotine dependence, cigarettes, uncomplicated; I69.322 Dysarthria following cerebral infarction; Z96.651 Presence of right artificial knee joint; Z79.82 Long term (current) use of aspirin
CPT/HCPCS: 36415; 36430; 47000; 71046; 74176; 74183; 76942; 80048; 80053; 81001; 82274; 82607; 82728; 82746; 83540; 83550; 83615; 83735; 84100; 84484; 85014; 85018; 85025; 85027; 85610; 85730; 86140; 86850; 86900; 86901; 86923; 87077; 87086; 87088; 87186; 87635; 88307; 88312; 88313; 88342; 92611; 93005; 96361; 96365; 96366; 96367; 96375; 96376; 99285; A9270; A9577; G0378; J0696; J1756; J3480; J7040; J7050; J7120; P9016

== ENCOUNTER 2023-10-04 20:47 | Emergency (ER) | payer MEDICARE, MEDICAID, SELFPAY ==
--- NOTE | ~2023-10-04 | CT_ITS ---
EXAMINATION: CT brain wo con DATE: 10/04/2023 21:26 INDICATION: Head injury. TECHNIQUE: Computed tomography (CT) of the head was performed without intravenous contrast. The mA wa s adjusted according to patient size. Iterative reconstruction technique was employed. The dose-lengt h product was 681.00 mGy-cm. COMPARISON: None FINDINGS: There are old infarcts in the bilateral basal ganglia. There is an old infarct in the mary. There are scattered areas of low attenuation in the cerebral white matter. There is no intracranial hemorrhage, acute infarction, or abnormal intracranial mass lesion. The ventricles are normal in size . The orbits are normal. There is mild mucosal thickening in the ethmoid sinuses. The mastoid air chauncey ls are normal. IMPRESSION: 1. Old infarcts in the bilateral basal ganglia and the mary. 2. Moderate nonspecific cerebral white matter disease, which likely represents chronic small vessel i schemic disease. Reviewed, dictated and finalized at location E. IMPRESSION: 1. Old infarcts in the bilateral basal ganglia and the mary. 2. Moderate nonspecific cerebral white matter disease, which likely represents chronic small vessel ischemic disease.
[2023-10-04 20:51] VITALS: BP 117/71; PULSE 100; RESP 16; TEMP 36.8; O2SAT 96
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
[2023-10-04 23:03] VITALS: BP 127/76; PULSE 76; RESP 20; O2SAT 98
== END 2023-10-04 23:06 ==
PROVIDERS: Emergency Provider Emergency Medicine; PCP Family Medicine
DX: S00.83XA Contusion of other part of head, initial encounter (principal); S00.81XA Abrasion of other part of head, initial encounter; I10 Essential (primary) hypertension; M72.0 Palmar fascial fibromatosis [Dupuytren]; F17.210 Nicotine dependence, cigarettes, uncomplicated; Z96.651 Presence of right artificial knee joint; Z86.73 Personal history of transient ischemic attack (TIA), and cerebral infarction without residual deficits; Z79.82 Long term (current) use of aspirin; R90.82 White matter disease, unspecified; W01.0XXA Fall on same level from slipping, tripping and stumbling without subsequent striking against object, initial encounter
CPT/HCPCS: 70450; 99284

== ENCOUNTER 2023-10-16 09:02 | Emergency (ER) | payer MEDICARE, MEDICAID, SELFPAY ==
--- NOTE | ~2023-10-16 | CT_ITS ---
EXAMINATION: CT cervical spine wo con DATE: 10/16/2023 10:01 INDICATION: Fall. TECHNIQUE: Computed tomography (CT) of the cervical spine was performed without intravenous contrast. Automated exposure control and iterative reconstruction technique were employed. The dose-length pro duct was 169.83 mGy-cm. COMPARISON: None FINDINGS: Bone is normal. Vertebral body heights are normal. There is mildly decreased disc height at C4-C5 and moderately decreased disc height at C5-C6 and C6-C7. The following disc levels are specifi mavis discussed: C2-C3: There is severe right and moderate left uncovertebral joint osteoarthritis. There is severe bi lateral facet joint osteoarthritis. There is mild left neural foraminal stenosis. There is no central canal stenosis. C3-C4: There is mild bilateral uncovertebral joint osteoarthritis. There is severe bilateral facet jose raul int osteoarthritis. There is mild bilateral neural foraminal stenosis. There is mild central canal st enosis. C4-C5: There is mild bilateral uncovertebral joint osteoarthritis. There is severe right and moderate left facet joint osteoarthritis. There is no neural foraminal stenosis. There is mild central canal stenosis. C5-C6: There is severe bilateral uncovertebral joint osteoarthritis. There is moderate right and mild left facet joint osteoarthritis. There is mild bilateral neural foraminal stenosis. There is mild ce ntral canal stenosis. C6-C7: There is severe right and mild left uncovertebral joint osteoarthritis. There is severe bilate ral facet joint osteoarthritis. There is mild bilateral neural foraminal stenosis. There is mild cent ral canal stenosis. C7-T1: There is no uncovertebral joint osteoarthritis. There is severe bilateral facet joint osteoart hritis. There is mild bilateral neural foraminal stenosis. There is no central canal stenosis. IMPRESSION: 1. No fracture. 2. Moderate cervical spondylosis. Reviewed, dictated and finalized at location A.
--- NOTE | ~2023-10-16 | XR_ITS ---
EXAMINATION: XR hip BI 2V w AP pelvis DATE: 10/16/2023 10:20 INDICATION: Hip and low back pain. Fall. TECHNIQUE: An anteroposterior view of the pelvis and 2 views of each hip were obtained. COMPARISON: None. FINDINGS: Bone alignment is normal. No fracture. There is moderate lumbar spondylosis. There is mild osteoarthritis of the hips. Stool distends the rectum. IMPRESSION: 1. Mild osteoarthritis of the hips. 2. Stool distends the rectum. Reviewed, dictated and finalized at location A.
--- NOTE | ~2023-10-16 | CT_ITS ---
EXAMINATION: CT brain wo con DATE: 10/16/2023 10:00 INDICATION: Status post fall. TECHNIQUE: Computed tomography (CT) of the head was performed without intravenous contrast. The dose- length product was 605.33 mGy-cm. Automated exposure control and iterative reconstruction technique w ere employed. COMPARISON: None FINDINGS: Generalized atrophy. Multiple bilateral chronic lacunar infarctions. There are scattered mo derate periventricular and subcortical white matter changes, most likely related to small vessel isch emic disease (microangiopathy). No ventriculomegaly or midline shift. Basilar cisterns are patent. Th ere is intracranial atherosclerosis. Paranasal sinuses and mastoids are pneumatized. No depressed sku ll fractures. Midline sagittal images demonstrate a normal corpus callosum and craniovertebral juncti on. IMPRESSION: 1. No acute intracranial abnormality. 2: Chronic bilateral lacunar infarctions. 3: Chronic age-related findings. Reviewed, dictated and finalized at location B.
--- NOTE | ~2023-10-16 | XR_ITS ---
EXAMINATION: [id number]_CR DATE: 10/16/2023 10:21 INDICATION: Fall. TECHNIQUE: Anteroposterior view of the chest, 2 views of the right ribs on 3 radiographs, and 2 views of the left ribs on 3 radiographs were obtained. COMPARISON: Chest 2 views 09/29/2023 FINDINGS: Calcified pulmonary nodules and calcified hilar lymph nodes are consistent with old granulo matous disease. No pleural effusion or pneumothorax. The heart size is normal. There are old healed f ractures of right fifth-10th ribs. There is an old healed fracture of left 10th rib. IMPRESSION: 1. No acute rib fracture. Reviewed, dictated and finalized at location A. IMPRESSION: 1. No acute rib fracture.
[2023-10-16 09:05] VITALS: BP 100/62; PULSE 88; RESP 20; TEMP 36.7; O2SAT 96
--- NOTE | 2023-10-16 09:14 | ECG_ITS ---
SEE SCANNED COPY FOR CONFIRMED REPORT. MTDD
--- NOTE | 2023-10-16 09:44 | ED.GENADULT ---
HPI - General Adult General Chief complaint: Fall Stated complaint: fall from bed, head injury Time Seen by Provider: 10/16/23 09:19 History of Present Illness HPI narrative: Jaleesa Powell is a 78 y/o female who presents today after a fall. Patient reports she was sitting on the side of the bed and was trying to use her call light for help, she tried to move her pillow but then fell on to the floor hitting her head. She denies LOC. Denies any pain. Alert and Oriented X 4 + hematoma/ ecchymosis to left frontal forehead Related Data Home Medications Medication Instructions Recorded Confirmed aspirin 81 mg tablet,delayed 81 mg PO DAILY 11/02/22 09/29/23 release atorvastatin 80 mg tablet 80 mg PO DAILY 11/02/22 09/29/23 acetaminophen 500 mg tablet 500 mg PO Q6H PRN Pain, Mild 09/29/23 09/29/23 (Tylenol Extra Strength) bisacodyl 10 mg rectal suppository 10 mg RECTAL USEASDIRECTD PRN 09/29/23 09/29/23 (Dulcolax (bisacodyl)) Constipation cholecalciferol (vitamin D3) 50 50 mcg PO DAILY 09/29/23 09/29/23 mcg (2,000 unit) tablet docusate sodium 100 mg capsule 100 mg PO DAILY 09/29/23 09/29/23 gabapentin 600 mg tablet 600 mg PO TID 09/29/23 09/29/23 hydrochlorothiazide 25 mg tablet 25 mg PO DAILY 09/29/23 09/29/23 magnesium hydroxide 400 mg/5 mL 30 mg PO USEASDIRECTD PRN 09/29/23 09/29/23 oral suspension (Milk of Magnesia) Constipation menthol 4 % topical gel (Biofreeze 1 applic topical QID PRN discomfort 09/29/23 09/29/23 (menthol)) sodium phosphates 19 gram-7 See Rx Instructions .Route 09/29/23 09/29/23 gram/118 mL enema (Fleet Enema) .COMPLEX PRN Constipation thiamine HCl (vitamin B1) 100 mg 100 mg PO DAILY 09/29/23 09/29/23 tablet Allergies Allergy/AdvReac Type Severity Reaction Status Date / Time Penicillins Allergy Intermediate Unknown Verified 10/16/23 09:14 Review of Systems Review of Systems: CONSTITUTIONAL: Denies fever, chills, or sweats. EYES: Denies visual changes, redness, or discharge. ENT: Denies rhinorrhea, congestion, sore throat, or otalgia. CARDIOVASCULAR: Denies chest pain, palpitations, or edema. RESPIRATORY: Denies cough or dyspnea. GASTROINTESTINAL: Denies abdominal pain, nausea, vomiting, or diarrhea. GENITOURINARY: Denies dysuria or hematuria. SKIN: Denies rash or itching. MUSCULOSKELETAL: Denies back pain, joint pain, or myalgia. NEUROLOGIC: Denies headache, numbness, dizziness, or weakness. PSYCHIATRIC: Denies anxiety or depression. COUNT INCLUDES THE [facility] Past Medical History Medical History Acute cerebrovascular accident (CVA) Dupuytrens contracture Hypertension Mass of oral cavity PTSD (post-traumatic stress disorder) Smoker Surgical History Surgical History H/O elbow surgery H/O wisdom tooth extraction History of bilateral carpal tunnel release History of total knee arthroplasty right Family History Family History Father Acute myocardial infarction Social History Social History Social History: The patient is . The patient continues to smoke at least a pack or more of cigarettes a day. The patient states that she drinks a case of beer a week. She denies any marijuana or illicit drugs. 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 The patient lives home alone and does not have any children. Code status full code Caffeine-coffee Smoking packs per day: 1 Smoking cigarettes per day: 20.0 Years smoked: 55 Smoking pack-years: 55.00 Smoking status: Current every day smoker Tobacco type: cigarettes Alcohol intake: former Drinks per week: 20 Alcohol use details: beer Substance use: never Do You Feel Safe in your Home?: Yes Lack of Transportation: No Lack of Food: Never True Current Housing: I Have Housing Concerned About Future Housing: No
--- NOTE | 2023-10-16 10:59 | PC.NURSE ---
Pt resting with eyes closed. Respirations equal and unlabored. Pt has no complaints of pain at this time.
--- NOTE | 2023-10-16 11:41 | PCCCNOTE ---
Call received from charge nurse requesting a cab voucher for pt to return to [facility]. Call placed to [facility] [place] and they confirmed pt is a resident there and they are able to come pick pt up. excelsior cutter, pt and staff informed. Pt waiting in ER lobby.
== END 2023-10-16 11:34 ==
PROVIDERS: Emergency Provider Nurse Practitioner Family; PCP Family Medicine
DX: S00.83XA Contusion of other part of head, initial encounter (principal); I10 Essential (primary) hypertension; M72.0 Palmar fascial fibromatosis [Dupuytren]; F17.210 Nicotine dependence, cigarettes, uncomplicated; Z96.651 Presence of right artificial knee joint; Z86.73 Personal history of transient ischemic attack (TIA), and cerebral infarction without residual deficits; Z79.82 Long term (current) use of aspirin; M47.812 Spondylosis without myelopathy or radiculopathy, cervical region; M16.0 Bilateral primary osteoarthritis of hip; I49.1 Atrial premature depolarization; W06.XXXA Fall from bed, initial encounter
CPT/HCPCS: 70450; 71111; 72125; 73521; 93005; 99284

== ENCOUNTER 2023-10-31 10:10 | Outpatient (CLI) | payer MEDICARE, MEDICAID, SELFPAY ==
--- NOTE | ~2023-10-31 | CT_ITS ---
Clinical Indication: Hepatocellular carcinoma CT Scan of the Chest with Contrast: Technique: Contiguous sections were acquired throughout the chest after intravenous administration of 75 cc of Omnipaque 350. Dose reduction technique was used on this scan by utilizing automated exposu re control and iterative reconstruction technique. The dose-length product (DLP) was 128.83 mGy-cm. Findings: There is no evidence of any significant mediastinal, hilar or axillary lymphadenopathy. There is no f illing defect in the pulmonary arterial tree to suggest pulmonary embolus. There is no evidence of ao rtic dissection or aneurysm. There are atherosclerotic calcifications of the aorta. There is no evidence of pleural or pericardial effusion. There is mild to moderate emphysema. There is a 1.1 cm nodule in the right lower lobe (axial image 45 ). Calcified lingular granuloma present. There is an additional 0.7 cm noncalcified nodule in the sup erior segment left lower lobe (axial image 45). Images through the upper abdomen reveal 8.5 x 6.5 cm hypodense mass extensively involving the left he patic lobe, and probably extending inferiorly to about the gastric antrum there is focal intrahepatic biliary dilatation in the lateral portion of the left hepatic lobe. Possible mild decreased enhancem ent in the superior right renal cortex. Chronic appearing T8 compression fracture present. Impression: 1.1 cm right lower lobe pulmonary nodule and 0.7 cm left lower lobe pulmonary nodule. Given history a nd concomitant findings are suspicious for metastatic lesions until proven otherwise. Large left hepatic lobe mass extending inferior laterally to abut the gastric antrum, compatible with history of hepatocellular carcinoma. There is associated focal intrahepatic biliary dilatation the l ateral portion of the left hepatic lobe. Possible area of decreased enhancement in the superior right renal cortex, although the kidneys are i ncompletely imaged. Pyelonephritis is a consideration. Correlate clinically. Mild to moderate emphysema. Reviewed, dictated and finalized at location . Impression: 1.1 cm right lower lobe pulmonary nodule and 0.7 cm left lower lobe pulmonary n odule. Given history and concomitant findings are suspicious for metastatic les ions until proven otherwise. Large left hepatic lobe mass extending inferior laterally to abut the gastric a ntrum, compatible with history of hepatocellular carcinoma. There is associated focal intrahepatic biliary dilatation the lateral portion of the left hepatic lobe. Possible area of decreased enhancement in the superior right renal cortex, alth ough the kidneys are incompletely imaged. Pyelonephritis is a consideration. Co rrelate clinically. Mild to moderate emphysema.
== END 2023-10-31 10:11 | disposition home or self-care (01) ==
PROVIDERS: PCP Family Medicine; Visit Provider Internal Medicine Hematology & Oncology
DX: C22.0 Liver cell carcinoma (principal); D64.9 Anemia, unspecified; Z11.59 Encounter for screening for other viral diseases; J43.9 Emphysema, unspecified; R91.1 Solitary pulmonary nodule
CPT/HCPCS: 71260; Q9967

== ENCOUNTER 2023-11-05 13:38 | Inpatient (IN) | payer MEDICARE, MEDICAID, SELFPAY ==
--- NOTE | 2023-10-30 15:43 | PC.NURSE ---
Report to the Outpatient Waiting Room, entrance under the green pavilion located off [facility], at time __7:30AM on date ___11/05/23____. Planned Procedure Time: ___9:30AM . Time changes happen often and if your time is changed the preop area will call you the afternoon before. - You and your visitor will be asked to self-screen and do not enter if you have any COVID symptoms. - A mask is optional within the hospital at this time. Patients may have clear liquids (water, carbonated beverages, clear teas, apple juice) until 3 hours prior to surgery with a maximum of 20 ounces. - No food from midnight until time of surgery. Take the following medications with a SIP of water the morning of surgery: ___GABAPENTIN DO NOT STOP ANY OF YOUR OTHER PRESCRIPTION MEDICATIONS PRIOR TO SURGERY ?EXCEPT THE FOLLOWING Medications to discontinue per physician __HOLD ALL VITAMINS/SUPPLEMENTS 3 DAYS PRE-OP PER ANESTHESIA Date to take last dose 11/01/23 Please no make-up, nail urdu, hairspray, perfume, deodorant, or body powder the day of surgery. No jewelry (including any body piercings) or valuables the day of surgery, leave them at home. Please take a shower or bath the night before, or the morning of, surgery with an antibacterial soap. Wear comfortable, loose fitting clothing. - Jewelry must be removed prior to entering the operating room. Rings and piercings that are not removed may be cut off. - The hospital will not accept responsibility for valuables. - Please leave all valuables, including medications, at home the day of surgery. If you are going home after surgery, a licensed escort car driver must drive you home. - NO public transportation without another adult if you receive anesthesia. - We recommend that an adult stay with you for 24 hours following discharge. - We also recommend that you do not drive, make important decision, drink alcoholic beverages, or take any drugs that were not prescribed by your health care provider for at least 24 hours after your discharge time. Follow any additional instructions given to you from your surgeon. If you or anyone in your household have experienced Covid symptoms in the past week, please notify your surgeon or the nurse liaison at the phone number below for possible testing. Telephone instructions given to ___[facility]SING HOME and asked if any additional questions and then verbalized understanding. Patient advised to call surgeon office or pre surgery nurse liaison [phone] if any additional questions.
[2023-11-01 08:23] VITALS: BMI 20.7
[2023-11-05] VITALS (35 sets, daily range): BP systolic 88–190; BP diastolic 56–113; PULSE 58–138; RESP 11–27; TEMP 35.9–36.4; O2SAT 90–100; BMI 19.8; BMI 20.1
--- NOTE | ~2023-11-05 | CT_ITS ---
EXAMINATION: CT soft tissue neck w con DATE: 11/05/2023 15:44 INDICATION: Oral/supraglottic mass. TECHNIQUE: Computed tomography (CT) of the neck was performed with 75 mL Omnipaque-350 intravenous co ntrast. Automated exposure control and iterative reconstruction technique were employed. The dose-laura gth product was 284.34 mGy-cm. COMPARISON: CT cervical spine 10/16/2023 FINDINGS: There is an old infarct in the right basal ganglia. There are scattered areas of low attenu ation in the cerebral white matter. There is a 3.5 x 1.6 cm mass involving the larynx and pharynx. Th ere are no pathologically enlarged lymph nodes. There is plaque in the proximal internal carotid sherri cirilo. There is less than 50% stenosis in proximal right internal carotid artery relative to normal di stal artery lumen diameter. There is 67% stenosis of proximal left internal carotid artery relative t o normal distal artery lumen diameter. 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 Partially visualized is a right internal jugular port. There is mild emphysema. There is an endotrach eal tube with tip in expected position. There is severe cervical spondylosis. IMPRESSION: 1. 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 Reviewed, dictated and finalized at location A.
--- NOTE | ~2023-11-05 | XR_ITS ---
XR chest ET placement DATE: 11/05/2023 13:11 INDICATION: ET tube placement TECHNIQUE: Portable supine AP view on 11/05/2023 at 1307 hours COMPARISON: 11/05/2023 portable AP chest at 1233 hours FINDINGS: Interval placement of an endotracheal tube, distal tip 3.3 cm above honorio. Right internal jugular Port-A-Cath catheter tip overlies the superior vena cava. Normal heart size. Aortic calcification and unfolding. Mild interval improvement of pulmonary interstitial soft tissue prominence since 1233 hours today. IMPRESSION: ET tube in satisfactory position Reviewed, dictated and finalized at Location [facility]. Reviewed, dictated and finalized at location B.
--- NOTE | ~2023-11-05 | XR_ITS ---
XR chest 1V portable DATE: 11/05/2023 12:40 INDICATION: Stridor or TECHNIQUE: Portable AP chest on 11/05/2023 at 1233 hours COMPARISON: 11/05/2023 portable AP chest at 1052 hours FINDINGS: There is interval development of bilateral pulmonary interstitial prominence including some Lindy B lines, suggesting pulmonary interstitial edema. Heart size is normal. Aortic calcification and unfolding. No pleural effusion or pneumothorax is evid ent. Right Port-A-Cath catheter tip overlies the superior vena cava. Multiple old healed right rib fractures. Osteopenia. IMPRESSION: Interval development of pulmonary interstitial edema since 1052 hours today Reviewed, dictated and finalized at location B. IMPRESSION: Interval development of pulmonary interstitial edema since 1052 brice today
--- NOTE | ~2023-11-05 | XR_ITS ---
EXAMINATION: XR fl guide central line place DATE: 11/05/2023 10:29 INDICATION: Port placement. TECHNIQUE: 3 intraoperative fluoroscopic views of the chest were obtained. I was not present. Fluoros copy exposure time was 35 seconds. COMPARISON: Chest single view 11/05/2023 FINDINGS: There is a right internal jugular central venous catheter with tip in superior vena cava. IMPRESSION: 1. Catheter tip in superior vena cava. Reviewed, dictated and finalized at location A.
--- NOTE | ~2023-11-05 | XR_ITS ---
Portable chest x-ray Comparison: 11/05/2023 Clinical History: Respiratory failure Findings: Endotracheal tube and right-sided Mediport in place. Lungs are clear, without focal consol idation or pleural effusion. Cardiomediastinal silhouette is stable. Bones and soft tissues are unre markable. Impression: Support tubes, as above. Clear lungs. Reviewed, dictated and finalized at location M. Impression: Support tubes, as above. Clear lungs.
--- NOTE | ~2023-11-05 | XR_ITS ---
EXAMINATION: XR chest 1V portable DATE: 11/05/2023 15:23 INDICATION: Respiratory distress. TECHNIQUE: A single frontal view of the chest was obtained. COMPARISON: Chest single view 11/05/2023 FINDINGS: There is no pneumonia, pleural effusion, or pneumothorax. The heart size is normal. The end otracheal tube tip is 3.5 cm above the honorio. There is a right internal jugular port with tip in sup erior vena cava. There are old healed right rib fractures. IMPRESSION: 1. No acute cardiopulmonary disease. Reviewed, dictated and finalized at location A.
--- NOTE | ~2023-11-05 | XR_ITS ---
XR chest port-a-cath/central DATE: 11/05/2023 10:59 INDICATION: Port-A-Cath insertion TECHNIQUE: Portable AP chest on 11/05/2023 1052 hours COMPARISON: September 29, 2023 2 view chest October 31, 2023 CT chest FINDINGS: Right Port-A-Cath catheter is noted, distal tip overlying the superior vena cava. There is no evidence of pneumothorax. The lungs are clear of infiltrate or consolidation. No pleural effusion or pulmonary vascular congest ion or pneumothorax is detected. Bilateral lower lobe masses are demonstrated to much better advantage on 10/31/2023 CT thorax examinat ion. IMPRESSION: Right Port-A-Cath placement, distal tip overlying superior vena cava. No evidence of pneu mothorax. Reviewed, dictated and finalized at Location [facility]. Reviewed, dictated and finalized at location B. IMPRESSION: Right Port-A-Cath placement, distal tip overlying superior vena cav a. No evidence of pneumothorax.
--- NOTE | 2023-11-05 08:16 | WPDANESEPPF ---
Anes - Initial Pre Proc Eval Procedure: Operation Date: 11/05/23 09:30 Proposed Procedures p Insertion Anila Cath - Darinel Elizondo MD Date/Time: 11/05/23 08:16 Surgeon: Darinel Elizondo MD Pre Op Diagnosis: hepatocellular CA Patient Data Age: 78 Gender: F Height: 1.6 m Weight: 53 kg Allergies Allergy/AdvReac Type Severity Reaction Status Date / Time Penicillins Allergy Intermediate Unknown Verified 10/30/23 13:48 Home Medications Medication Instructions Recorded Confirmed Type aspirin 81 mg tablet,delayed 81 mg PO DAILY 11/02/22 10/30/23 History release atorvastatin 80 mg tablet 80 mg PO DAILY 11/02/22 10/30/23 History acetaminophen 500 mg tablet 500 mg PO Q6H PRN Pain, Mild 09/29/23 10/30/23 History (Tylenol Extra Strength) bisacodyl 10 mg rectal suppository 10 mg RECTAL USEASDIRECTD PRN 09/29/23 10/30/23 History (Dulcolax (bisacodyl)) Constipation cholecalciferol (vitamin D3) 50 50 mcg PO DAILY 09/29/23 10/30/23 History mcg (2,000 unit) tablet docusate sodium 100 mg capsule 100 mg PO DAILY 09/29/23 10/30/23 History hydrochlorothiazide 25 mg tablet 25 mg PO DAILY 09/29/23 10/30/23 History magnesium hydroxide 400 mg/5 mL 30 mg PO USEASDIRECTD PRN 09/29/23 10/30/23 History oral suspension (Milk of Magnesia) Constipation menthol 4 % topical gel (Biofreeze 1 applic topical QID PRN discomfort 09/29/23 10/30/23 History (menthol)) sodium phosphates 19 gram-7 See Rx Instructions .Route 09/29/23 10/30/23 History gram/118 mL enema (Fleet Enema) .COMPLEX PRN Constipation thiamine HCl (vitamin B1) 100 mg 100 mg PO DAILY 09/29/23 10/30/23 History tablet ferrous gluconate 324 mg (38 mg 324 mg PO DAILY@0800 #30 tabs 10/02/23 10/30/23 Rx iron) tablet gabapentin 800 mg tablet 800 mg PO TID 10/30/23 10/30/23 History magnesium citrate 300 ml PO DAILY PRN Constipation 10/30/23 10/30/23 History Patient hx anesthesia problems: none Family hx anesthesia problems: none Results Review: All pre-operative results and documents have been reviewed as part of the pre-operative evaluation. [facility] Past Medical History Medical History Acute cerebrovascular accident (CVA) Dupuytrens contracture Hypertension Mass of oral cavity PTSD (post-traumatic stress disorder) Smoker Surgical History Surgical History H/O elbow surgery H/O wisdom tooth extraction History of bilateral carpal tunnel release History of total knee arthroplasty right Family History Family History Father Acute myocardial infarction Social History Social History Social History: The patient is . The patient continues to smoke at least a pack or more of cigarettes a day. The patient states that she drinks a case of beer a week. She denies any marijuana or illicit drugs. 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 The patient lives home alone and does not have any children. Code status full code Caffeine-coffee Smoking packs per day: 1 Smoking cigarettes per day: 20.0 Years smoked: 55 Smoking pack-years: 55.00 Smoking status: Current every day smoker Tobacco type: cigarettes Additional smoking assessment comments: HX NICOTINE ABUSE Alcohol intake: former Drinks per week: 20 Alcohol use details: HX ALCOHOL ABUSE Substance use: unknown Do You Feel Safe in your Home?: Yes Lack of Transportation: No Lack of Food: Never True Current Housing: I Have Housing Concerned About Future Housing: No Difficulty Paying Gas/Electric Bills: No Difficulty Paying for Meds: No Currently Unemployed: No Education: High School Diploma/GED Difficulty w/ Childcare or Family Care: No Living arrangements: prison Spiritual care concerns: No Anes - Eval Final Pr
[2023-11-05] MEDS: LACTATED RINGERS 1,000 ML 30 ML IV CONT ×2 (08:52→12:50)
[2023-11-05 09:01] LABS: Prothrombin Time 13.1 Seconds (11.1-14.7)
[2023-11-05 09:02] LABS: Partial Thromboplastin Time 28.2 Seconds (22.3-36.8)
--- NOTE | 2023-11-05 09:02 | PM.IMHP ---
H&P: HPI History of Present Illness Date/Time: 11/05/23 09:02 Chief Complaint: Hepatocellular carcinoma, need for jaziel catheter Narrative: Patient is a 78-year-old female has a history of a stroke. She has been diagnosed with hepatocellular carcinoma and has been referred for placement of jaziel catheter for chemotherapy treatments. She has not had a previous port in the past. Has never had central lines in the upper central veins. Review of Systems Review of Systems: The remainder of the review of systems to include constitutional, HEENT, cardiovascular, respiratory, GI, , integumentary, musculoskeletal, endocrine, immunologic, hematologic, psychiatric, and neurologic are all negative except for which is mentioned above in the HPI. [facility] Past Medical History Medical History Acute cerebrovascular accident (CVA) Dupuytrens contracture Hypertension Mass of oral cavity PTSD (post-traumatic stress disorder) Smoker Surgical History Surgical History H/O elbow surgery H/O wisdom tooth extraction History of bilateral carpal tunnel release History of total knee arthroplasty right Family History Family History Father Acute myocardial infarction Social History Social History Social History: The patient is . The patient continues to smoke at least a pack or more of cigarettes a day. The patient states that she drinks a case of beer a week. She denies any marijuana or illicit drugs. 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 The patient lives home alone and does not have any children. Code status full code Caffeine-coffee Smoking packs per day: 1 Smoking cigarettes per day: 20.0 Years smoked: 55 Smoking pack-years: 55.00 Smoking status: Current every day smoker Tobacco type: cigarettes Additional smoking assessment comments: HX NICOTINE ABUSE Alcohol intake: former Drinks per week: 20 Alcohol use details: HX ALCOHOL ABUSE Substance use: unknown Do You Feel Safe in your Home?: Yes Lack of Transportation: No Lack of Food: Never True Current Housing: I Have Housing Concerned About Future Housing: No Difficulty Paying Gas/Electric Bills: No Difficulty Paying for Meds: No Currently Unemployed: No Education: High School Diploma/GED Difficulty w/ Childcare or Family Care: No Living arrangements: snf Spiritual care concerns: No Meds Home Medications and Allergies Home Medications Medication Instructions Recorded Confirmed Type aspirin 81 mg tablet,delayed 81 mg PO DAILY 11/02/22 10/30/23 History release atorvastatin 80 mg tablet 80 mg PO DAILY 11/02/22 10/30/23 History acetaminophen 500 mg tablet 500 mg PO Q6H PRN Pain, Mild 09/29/23 10/30/23 History (Tylenol Extra Strength) bisacodyl 10 mg rectal suppository 10 mg RECTAL USEASDIRECTD PRN 09/29/23 11/05/23 History (Dulcolax (bisacodyl)) Constipation cholecalciferol (vitamin D3) 50 50 mcg PO DAILY 09/29/23 10/30/23 History mcg (2,000 unit) tablet docusate sodium 100 mg capsule 100 mg PO DAILY 09/29/23 10/30/23 History hydrochlorothiazide 25 mg tablet 25 mg PO DAILY 09/29/23 10/30/23 History magnesium hydroxide 400 mg/5 mL 30 mg PO USEASDIRECTD PRN 09/29/23 11/05/23 History oral suspension (Milk of Magnesia) Constipation menthol 4 % topical gel (Biofreeze 1 applic topical QID PRN discomfort 09/29/23 10/30/23 History (menthol)) sodium phosphates 19 gram-7 See Rx Instructions .Route 09/29/23 11/05/23 History gram/118 mL enema (Fleet Enema) .COMPLEX PRN Constipation thiamine HCl (vitamin B1) 100 mg 100 mg PO DAILY 09/29/23 10/30/23 History tablet ferrous gluconate 324 mg (38 mg 324 mg PO DAILY@0800 #30 tabs 10/02/23 10/30/23 Rx iron) tablet gabapentin 800 mg tablet 800 m
--- NOTE | 2023-11-05 09:05 | WPDHPUPDATE1 ---
History and Physical Update Update Date/Time: 11/05/23 09:05 History and Physical has been reviewed, including an updated exam of the patient. There are NO changes in the patient's condition. Risks, benefits, and alternatives have been discussed and questions answered. Patient agrees to proceed with procedure.
[2023-11-05] MEDS: ceFAZolin 2 GM/D5W 50 ML 2 GM/50 ML BAG IVPB (09:30)
[2023-11-05] MEDS: BUPivacaine HCL 0.5% PF 30 ML VIAL 15 ML INFILTRATE (10:17)
[2023-11-05] MEDS: HEPARIN SODIUM 1,000 UNITS/ML VIAL 1000 UNITS IV PUSH (10:19)
[2023-11-05] MEDS: HEPARIN SODIUM 5,000 UNITS/ML VIAL 5000 UNITS IRRIGATION (10:20)
--- NOTE | 2023-11-05 10:37 | W.PM.PROC2 ---
Procedure Note - Detailed Date of Procedure 11/05/23 Pre-op Diagnosis hepatocellular CA Post-op Diagnosis Same Procedure Performed Placement of right internal jugular vein jaziel catheter with intraoperative fluoroscopy. Surgeon Darinel Elizondo MD Anesthesia General Indications Patient is a 78-year-old female who has hepatocellular carcinoma. She was referred for placement of a jaziel catheter. She presents now for placement of jaziel catheter. Findings On induction anesthesia noted a mass in the pharynx. Was friable and did bleed. Anesthesia was able to intubate the patient despite the mass. Description of Procedure After informed consent was obtained patient brought to the operating room she was placed in the supine position and general endotracheal anesthesia was administered. The bilateral upper anterior neck and chest was then prepped and draped usual sterile fashion. During induction and evaluation of the pharynx she was noted to have a mass which is friable and bled easily. Anesthesia was able to still intubated her. A time-out was then performed correctly identifying the patient as well as procedure to be performed and she was given preoperative IV antibiotics. Attempted placement of the catheter into the right internal jugular vein. With the patient in the head-down Trendelenburg position and long 18gauge needle was then used to cannulate the right internal jugular vein on the 1st pass the knee difficulty. There was prompt return of dark venous appearing blood. A guidewire was then advanced through the needle into the right internal jugular vein subsequent down into the superior vena cava. Intraoperative fluoroscopy was then used to visualize the tip the guidewire to ensure that was in the proper position. I then made a transverse incision just below the medial 3rd of the right clavicle. Dissection carried down through the subcutaneous tissue electrocautery and then blunt finger electrocautery dissection was used to make the subcu port pocket just below the incision. I then tunneled a size 9.6 Tongan single-lumen catheter between the chest incision and small neck incision. I then advanced a dilator and breakaway sheath over the guidewire to enlarge to be not a me. The dilator and guidewire were removed leaving the sheath in place. The 9.6 Tongan single-lumen catheter was then advanced through the sheath into the right internal jugular vein subsequent down into the right atrium of the heart. Intraoperative fluoroscopy was used once more to visualize the catheter then pulled back on the catheter was then distal superior vena cava. I then cut the catheter to the appropriate length at the skin level. Attached to the Smart Port. The port was then secured in subcutaneous port pocket on 3 sides with 3-0 Prolene sutures. The port pocket was then irrigated sterile saline solution. Hemostasis was good. I then accessed the port and aspirated blood easily and was flushed with heparinized saline solution. The incision was then closed utilizing interrupted 3-0 Vicryl sutures in subcutaneous tissues. The skin edges were then closed utilizing a running subcuticular 4 Monocryl suture. Incision was then cleaned and then skin glue was applied. The small neck incision was then closed with a single 4-0 Monocryl suture placed in interrupted fashion. Skin glue was applied to the neck incision as well. I then accessed the port percutaneously 1 last time. It aspirated blood once more then was flushed with 5000units of IV heparin. The patient tolerated the procedure well no complications. All sponges, needles, and instrument counts were correct at the end procedure. EBL was _10__cc. The patient was awakened and taken to recovery in stable and satisfactory condition. Chest x-ray postoperatively is pending at the time this dictation. Implants 9.6 Tongan single-lumen catheter attached to Smart port right internal jugular vein Estimated Blood Loss 10 Drains No
[2023-11-05] MEDS: fentaNYL CITRATE INJ (*CRX) 100 MCG/2 ML VIAL 25 MCG IV PUSH ×2 (11:02→11:14)
[2023-11-05] MEDS: oxyCODONE HCL (*CRX) 5 MG TAB IR PO (11:45)
--- NOTE | 2023-11-05 12:37 | SUR.PHASEII ---
1225 - Pt. was getting dressed to d/c home and started having difficulty breathing. O2 sat 89% at this time. Placed on 2L NC. Pt. coughing up bloody sputum. MD Carreon notified and at bedside. Pt was then transferred back to PACU at 1232 accompanied by MD Carreon and RN. Report given to GLASS BLOWING LATHE OPERATOR.
--- NOTE | 2023-11-05 12:43 | SUR.PHASEI ---
PATIENT TRANSFERRED BACK TO PACU D/T RESPIRATORY DISTRESS, GURGLING, SUCTIONING BLOOD SECRETIONS. DR. STEVEN AT BEDSIDE. PORTABLE CXR DONE. AIRWAY PLACED. BAGGING/SUCTIONING. PREPARING TO INTUBATE.
[2023-11-05] MEDS: FUROSEMIDE INJ 40 MG/4 ML VIAL 10 MG IV PUSH (12:55)
--- NOTE | 2023-11-05 12:56 | SUR.PHASEI ---
INTUBATION ATTEMPTS IN PROGRESS PER DR. STEVEN AND DR. REYES.
--- NOTE | 2023-11-05 13:05 | SUR.PHASEI ---
Addendum entered by Liss Nuno RN 11/05/23 13:29: INTUBATED AT 1301. Addendum entered by Lsis Nuno RN 11/05/23 13:24: CORRECTION: 6.5 ETT PLACED AND NOT 7.9. Original Note: 7.0 ETT PLACED; BAGGED PER DR. REYES.
--- NOTE | 2023-11-05 13:09 | SUR.PHASEI ---
RESPIRATORY THERAPIST CONNECTING ETT TO VENTILATOR. ICU BED OBTAINED PER CHARGE ATTENDANT.
--- NOTE | 2023-11-05 13:13 | SUR.PHASEI ---
PROPOFOL GTT STARTED, 5 MCG/KG/MIN AT 15 ML/HOUR.
--- NOTE | 2023-11-05 13:14 | SUR.PHASEI ---
PORTABLE CXR AT 1308 TO CONFIRM ETT PLACEMENT.
[2023-11-05] MEDS: PROPOFOL IV EMULSION 100 ML 15.18 MG IV CONT ×2 (13:20→17:37)
--- NOTE | 2023-11-05 13:28 | SUR.PHASEI ---
DR. RUTLEDGE SPEAKING TO FAMILY.
--- NOTE | 2023-11-05 13:41 | SUR.PHASEI ---
Addendum entered by Liss Nuno RN 11/05/23 15:44: CORRECTION: DR. URIAS SPOKE TO DR. MARCIAL, SURVEY RESEARCH PROFESSOR, NOT DR. RUTLEDGE. Original Note: DR. RUTLEDGE SPOKE TO DR. MARCIAL, SURVEY RESEARCH PROFESSOR.
--- NOTE | 2023-11-05 13:46 | SUR.PHASEI ---
incorrect phone number listed for sister Kalie Dixon registration contacted to make change correct cell number is [phone] also sister owns home and 24 hour answering service [phone]
--- NOTE | 2023-11-05 13:51 | PM.IMHP ---
H&P: HPI History of Present Illness Date/Time: 11/05/23 13:20 Chief Complaint: Respiratory failure. Narrative: This is a 78-year-old female smoker with with history of stroke, hypertension, known oral mass, and recent diagnosis of hepatocellular carcinoma who presented today for Port-A-Cath insertion in order to start treatment. During intubation she was noted to have a friable oral mass but she was reportedly intubated without issue. Surgery was uneventful, she was extubated, and taken to PACU where she did well for quite some time. Nurse helped her get dressed to prepare for discharge. The patient suddenly complained of shortness of breath and started to cough up a small amount of clear mucus. The shortness of breath progressed quite rapidly and nurse reports that she developed stridor and began coughing up bright red blood. Anesthesiologist was summoned and she was intubated with some difficulty due to the presence of bleeding from oral mass. Said mass was first noted on imaging obtained in June 2022 when the patient was hospitalized at [place] with a stroke. She saw Dr. Pedro in October 2022 in consultation and he requested records however it looks as though she was lost to follow-up thereafter. In any event she is sedated and intubated on mechanical ventilation and is being admitted to the ICU. Review of Systems Review of Systems: Unable to obtain given clinical condition. [facility] Past Medical History Medical History Cerebrovascular accident Dupuytrens contracture Hepatocellular carcinoma Hypertension Mass of oral cavity Smoker Surgical History Surgical History History of arthroplasty of right knee History of bilateral carpal tunnel release History of elbow surgery History of wisdom tooth extraction Family History Family History Father Acute myocardial infarction Social History Social History (Updated 11/05/23 @ 19:40 by Dior Núñez PA-C) Social History: The patient is . The patient continues to smoke at least a pack or more of cigarettes a day. The patient states that she drinks a case of beer a week. She denies any marijuana or illicit drugs. 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 The patient lives home alone and does not have any children. Code status full code Smoking packs per day: 1 Smoking cigarettes per day: 20.0 Years smoked: 55 Smoking pack-years: 55.00 Smoking status: Current every day smoker Alcohol intake: former Drinks per week: 20 Alcohol use details: HX ALCOHOL ABUSE Substance use: unknown Do You Feel Safe in your Home?: Yes Lack of Transportation: No Lack of Food: Never True Current Housing: I Have Housing Concerned About Future Housing: No Difficulty Paying Gas/Electric Bills: No Difficulty Paying for Meds: No Currently Unemployed: No Education: High School Diploma/GED Difficulty w/ Childcare or Family Care: No Living arrangements: penitentiary Spiritual care concerns: No Meds Home Medications and Allergies Home Medications Medication Instructions Recorded Confirmed Type aspirin 81 mg tablet,delayed 81 mg PO DAILY 11/02/22 10/30/23 History release atorvastatin 80 mg tablet 80 mg PO DAILY 11/02/22 10/30/23 History acetaminophen 500 mg tablet 500 mg PO Q6H PRN Pain, Mild 09/29/23 10/30/23 History (Tylenol Extra Strength) bisacodyl 10 mg rectal suppository 10 mg RECTAL USEASDIRECTD PRN 09/29/23 11/05/23 History (Dulcolax (bisacodyl)) Constipation cholecalciferol (vitamin D3) 50 50 mcg PO DAILY 09/29/23 10/30/23 History mcg (2,000 unit) tablet docusate sodium 100 mg capsule 100 mg PO DAILY 09/29/23 10/30/23 History hydrochlorothiazide 25 mg tablet 25 mg PO DAILY 09/29/23 10/30/23 History magnesium hydroxide 400 mg/5 mL 30 mg PO USEASDIRECTD PRN
--- NOTE | 2023-11-05 13:55 | SUR.PHASEI ---
[facility] [phone] where patient lives was given update that patient will be admitted today
--- NOTE | 2023-11-05 14:26 | WPDCNINT ---
Assessment and Plan Assessment and plan (1) Acute respiratory failure: Code(s): J96.00 - Acute respiratory failure, unspecified whether with hypoxia or hypercapnia Status: Acute Assessment and Plan: Acute respiratory failure likely related to stridor, aspiration of blood in the airway, impending respiratory failure requiring intubation 11/04: Intubated by anesthesiologist in the PACU, he stated was a difficult intubation as the blood from the mass in the airway was obscuring the anatomy. He tried initially with a glide scope, was unsuccessful. He then tried with a MAC 4 blade was able to get a size 6.5 ETT -currently on CMV mode of ventilation, of 5, 40% FiO2 -chest x-ray and ABGs reviewed, ventilator adjusted -add bronchodilators -continue propofol for sedation maintain RASS is -2 (2) Aspiration into airway: Code(s): T17.908A - Unspecified foreign body in respiratory tract, part unspecified causing other injury, initial encounter Status: Acute Assessment and Plan: Likely aspiration of blood into the airway causing shortness of breath and requiring intubation -continue management as above (3) Supraglottic mass: Code(s): J38.7 - Other diseases of larynx Status: Acute Assessment and Plan: There was a friable mass in the airway which was bleeding -will consult ENT -obtained CT scan of the neck and soft tissues, discussed with radiology the will also include part of the face in the CT scan -PT/INR, PTT within normal limits -check fibrinogen level (4) HCC (hepatocellular carcinoma): Code(s): C22.0 - Liver cell carcinoma Status: Acute Assessment and Plan: History of hepatocellular carcinoma, is being followed by Dr. Nath -patient had a Port-A-Cath placed today on 11/05/2023 show that she could start chemotherapy (5) Admission for fitting of Port-A-Cath: Code(s): Z45.2 - Encounter for adjustment and management of vascular access device Status: Acute Assessment and Plan: 11/05/2023: Port-A-Cath was placed by surgery Plan DVT prophylaxis: SCDs, no prophylaxis secondary to bleeding and friable mass in the airway Stress ulcer prophylaxis: Protonix Nutrition: NPO for now. No OG/NG tube for now as patient has a bleeding and friable mass in the airway Code Status: Full code Critical Care Time Spent: 47 minutes Due to a high probability of clinically significant, life threatening deterioration, the patient required my highest level of preparedness to intervene emergently and I personally spent this critical care time directly and personally managing the patient. This critical care time included obtaining a history; examining the patient; pulse oximetry; ordering and review of studies; arranging urgent treatment with development of a management plan; evaluation of patient's response to treatment; frequent reassessment; and discussions with other providers. It was exclusive of separately billable procedures and treating other patients and teaching time. Please see Assessment and Plan section and the rest of the note for further information on patient assessment and treatment This dictation may have been done utilizing a voice recognition system. Attempts have been made to correct errors. However, there may be uncorrected grammatical, spelling, and recognitions errors present. Fluorescent Solution Mixer Consult Note Consult date: 11/05/23 Reason for consult: Respiratory failure, exophytic mass in the airway noted during intubation HPI: Jaleesa Powell is a 78 year old female with significant past medical history of CVA, hypertension, recent diagnosis of hepatic cellular carcinoma who presented from the assisted for placement of a Port-A-Cath. Pre procedure patient was intubate was noted to have a friable oral/pharyngeal mass but she was reportedly intubated without issue. Port-A-Cath placement was uneventful. Patient was taken the PACU and then she was gett
[2023-11-05 14:30] LABS: Alveolar/Arterial O2 Gradient 122.7 mmHg; Base Excess ABG 4.4 mEq/l (+/-2.0); Carboxyhemoglobin 0.7 % THb (0-2.0); Fractional Inspired Oxygen 40 %; HCO3 ABG 30.4 mEq/l (22.0-26.0); Methemoglobin ABG 0.3 %THb (0-1.5); Modified Allen's Test Pass; Oxygen Content ABG 15.6 %vol (16.0-22.0); Oxygen Saturation ABG 97.6 % (95.0-100.0); Oxyhemoglobin 96.7 % THb (90.0-100.0); PCO2 ABG 51.9 mmHg (35.0-45.0); PO2 ABG 102.8 mmHg (80.0-100.0); PO2 FiO2 Ratio Arterial Blood 2.57 %; Reduced Hemoglobin 2.3 %THb (0-5.0); Site Drawn LEFT RADIAL; Total Hemoglobin 11.4 g/dL (12.0-18.0); pH ABG 7.385 (7.350-7.450)
[2023-11-05 14:31] LABS: Arterial Blood Gas PEEP 5 cmH2O; Arterial Blood Gas Tidal Volume 350 ml; Arterial Blood Gas Vent Mode CMV; Arterial Blood Gas Ventilator rate 16 /MIN; Device VENTILATOR
--- NOTE | 2023-11-05 14:53 | ADMGEN ---
Addendum entered by Nuria Castrejon RN 11/05/23 14:53: Pt received from PACU intubated with a size 6.5 ETT, 24 @ the lip with Propofol infusing at 50mcg/kg/min. Report received from LATOYA Mcleod @ 5092. Sister, Kalie Dixon, updated with patient's admission. Original Note: This patient, Jaleesa Powell, was admitted to Intensive Care Unit-8. Patient/family oriented to hospital policies and general routines including ID bracelet, bed and alarms, visiting hours, pain management, procedures, bathroom and other care routines, personal items, smoking policy, room service/diet, and visiting hours. Information on how to activate the Rapid Response Team has been discussed. Patient/Family are encouraged to report perceived risks to care and to ask questions if they do not understand what they are told or what they should do.
[2023-11-05 15:10] LABS: Hematocrit 33.4 % (37.0-47.0); Mean Corpuscular HGB Conc 29.9 g/dl (32-36); Mean Corpuscular Hemoglobin 24.1 pg (26-34); Mean Corpuscular Volume 80.5 fl (80-100); Mean Platelet Volume 10.3 fl (7.4-10.4); Platelet Count Result 449 k/mm3 (150-375); Red Blood Count 4.15 M/mm3 (4.2-5.4); White Blood Count 16.8 K/mm3 (4.5-10.0)
[2023-11-05 15:22] LABS: Alanine Aminotransferase 25 U/L (6-35); Albumin Level 3.7 g/dL (3.5-5.1); Alkaline Phosphatase 158 U/L (38-126); Anion Gap 9 mmol/L (4-12); Aspartate Amino Transferase 24 U/L (14-36); Bilirubin,Total 0.5 mg/dL (0.2-1.3); Blood Urea Nitrogen 16 mg/dL (7-17); Calcium 8.9 mg/dL (8.4-10.2); Carbon Dioxide 25 mmol/L (22-30); Chloride 98 mmol/L (98-107); Estimated CRCL calculation 48 ml/min; Estimated Glomerular Filt Rate > 60; Glucose 147 mg/dL (65-110); Magnesium 2.2 mg/dL (1.6-2.3); Potassium 3.1 mmol/L (3.4-5.0); Sodium 132 mmol/L (137-145)
[2023-11-05 15:23] LABS: Triglycerides 234 mg/dL (<150)
[2023-11-05 15:23] LABS: Lactic Acid Reflex 1.8 mmol/L (0.7-2.0)
[2023-11-05 15:38] LABS: Estimated CRCL calculation 38 ml/min; Estimated Glomerular Filt Rate > 60
[2023-11-05 15:43] LABS: Partial Thromboplastin Time 21.6 Seconds (22.3-36.8); Prothrombin Time 13.1 Seconds (11.1-14.7)
[2023-11-05 15:44] LABS: Fibrinogen 582 mg/dl (215-510)
--- NOTE | 2023-11-05 16:18 | PC.NURSE ---
POLST form received from [facility] stating that pt wishes to be a DNR. RN spoke with sister, Kalie Dixon, regarding POLST form that was received from [facility]. Kalie was updated that pt had wishes to be a DNR. Kalie stated, If that's what she wanted, then yes, make her a DNR. Updated Dr. Muse regarding pt's code status. New order to change code status to DNR, and to consult Dr. Nath for mass in the larynx and pharynx.
[2023-11-05 16:21] LABS: Band Neutrophils Percent 2 % (0-6); Neutrophils Absolute Manual 16.29 K/mm3 (1.7-7.2); Neutrophils Percent Manual 95 % (46-73); Platelet Estimate Increased (Adequate); Total Cells Counted 100
[2023-11-05 16:22] LABS: Anisocytosis 2+; Schistocytes None Seen
[2023-11-05 16:23] LABS: Hypochromasia 1+
[2023-11-05 16:27] LABS: D Dimer 3.59 ug/mL (<0.48)
--- NOTE | 2023-11-05 17:01 | PM.IMHP ---
H&P: HPI History of Present Illness Date/Time: 11/05/23 17:01 Chief Complaint: Respiratory failure Narrative: Patient [facility] on November 05, 2023 for placement of a jaziel catheter. She has known hepatocellular carcinoma and Oncology requested that a jaziel catheter be placed. She underwent jaziel catheter placement procedure without any issues. Postprocedure chest x-ray was obtained there is no evidence of pneumothorax. As the patient was getting dressed apparently she started having stridorous breathing and rapidly decompensated with respiratory failure. He was quickly moved from the outpatient area to the postoperative recovery area where she was intubated by Anesthesia. She was placed on a ventilator and then admitted to the hospital for respiratory failure. She was also noted to have a mass in the pharynx on administration of anesthesia. This did cause some bleeding during intubation. Apparently this is also a new finding. Review of Systems Review of Systems: The remainder of the review of systems to include constitutional, HEENT, cardiovascular, respiratory, GI, , integumentary, musculoskeletal, endocrine, immunologic, hematologic, psychiatric, and neurologic are all negative except for which is mentioned above in the HPI. [facility] Past Medical History Medical History Cerebrovascular accident Dupuytrens contracture Hypertension Mass of oral cavity Smoker Surgical History Surgical History History of arthroplasty of right knee History of bilateral carpal tunnel release History of elbow surgery History of wisdom tooth extraction Family History Family History Father Acute myocardial infarction Social History Social History Social History: The patient is . The patient continues to smoke at least a pack or more of cigarettes a day. The patient states that she drinks a case of beer a week. She denies any marijuana or illicit drugs. 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 The patient lives home alone and does not have any children. Code status full code Caffeine-coffee Smoking packs per day: 1 Smoking cigarettes per day: 20.0 Years smoked: 55 Smoking pack-years: 55.00 Smoking status: Current every day smoker Additional smoking assessment comments: HX NICOTINE ABUSE Alcohol intake: former Drinks per week: 20 Alcohol use details: HX ALCOHOL ABUSE Substance use: unknown Do You Feel Safe in your Home?: Yes Lack of Transportation: No Lack of Food: Never True Current Housing: I Have Housing Concerned About Future Housing: No Difficulty Paying Gas/Electric Bills: No Difficulty Paying for Meds: No Currently Unemployed: No Education: High School Diploma/GED Difficulty w/ Childcare or Family Care: No Living arrangements: correction Spiritual care concerns: No Meds Home Medications and Allergies Home Medications Medication Instructions Recorded Confirmed Type aspirin 81 mg tablet,delayed 81 mg PO DAILY 11/02/22 10/30/23 History release atorvastatin 80 mg tablet 80 mg PO DAILY 11/02/22 10/30/23 History acetaminophen 500 mg tablet 500 mg PO Q6H PRN Pain, Mild 09/29/23 10/30/23 History (Tylenol Extra Strength) bisacodyl 10 mg rectal suppository 10 mg RECTAL USEASDIRECTD PRN 09/29/23 11/05/23 History (Dulcolax (bisacodyl)) Constipation cholecalciferol (vitamin D3) 50 50 mcg PO DAILY 09/29/23 10/30/23 History mcg (2,000 unit) tablet docusate sodium 100 mg capsule 100 mg PO DAILY 09/29/23 10/30/23 History hydrochlorothiazide 25 mg tablet 25 mg PO DAILY 09/29/23 10/30/23 History magnesium hydroxide 400 mg/5 mL 30 mg PO USEASDIRECTD PRN 09/29/23 11/05/23 History oral suspension (Milk of Magnesia) Constipation menthol 4 % topical gel (Bi
[2023-11-05 17:36] LABS: Appearance Urine Turbid (Clear); Bacteria Urine 1+ /hpf; Bilirubin Urine Negative (Negative); Blood Urine 1+ (Negative); Color Urine Yellow (Yellow); Glucose Urine UA Negative (Negative); Ketones Urine Negative (Negative); Leukocyte Esterase Ur 3+ LEU/UL (Negative); Nitrate Urine Negative (Negative); Protein Urine Trace mg/dL (Negative); RBC Urine 0-2 /hpf (0-2); Squamous Epithelial Cell Urine None Seen /hpf (Few); Urobilinogen Urine 0.2 mg/dL (<2.0); WBC Urine >100 /hpf (0-3)
[2023-11-05 17:43] LABS: Specific Grav Ur 1.053 (1.001-1.035)
[2023-11-05 17:44] LABS: Add Urine Microscopic? YES
--- NOTE | 2023-11-05 17:47 | WPDCN ---
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 If the patient bleeds from the oral cavity recommend using vaginal packing to completely block the oral cavity. Gentle Suction as needed. perform tracheostomy would also recommend direct laryngoscopies with biopsy. All this being said nursing reports the patient is DNR. (2) Supraglottic mass: Code(s): J38.7 - Other diseases of larynx Status: Acute HPI Data of Consult Date/Time: 11/05/23 17:47 Requesting Physician: Darinel Elizondo MD Primary Care Provider: Jeremías Moreno MD Consult Narrative Narrative: Jaleesa Powell is a 78 year old female With tongue base mass. Urgently intubated bleeding ensued. Airway secured. CT reviewed looks like there is a geometrically centered right-sided tongue base mass pushing posteriorly. Involves the pharynx. Glottis may be spared difficult to ascertain given the tubes in. Review of Systems Review of Systems: All systems reviewed & are unremarkable except as noted in HPI and below PMFSH Past Medical History Medical History Cerebrovascular accident Dupuytrens contracture Hypertension Mass of oral cavity Smoker Surgical History Surgical History History of arthroplasty of right knee History of bilateral carpal tunnel release History of elbow surgery History of wisdom tooth extraction Family History Family History Father Acute myocardial infarction Social History Social History Social History: The patient is . The patient continues to smoke at least a pack or more of cigarettes a day. The patient states that she drinks a case of beer a week. She denies any marijuana or illicit drugs. 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 The patient lives home alone and does not have any children. Code status full code Caffeine-coffee Smoking packs per day: 1 Smoking cigarettes per day: 20.0 Years smoked: 55 Smoking pack-years: 55.00 Smoking status: Current every day smoker Additional smoking assessment comments: HX NICOTINE ABUSE Alcohol intake: former Drinks per week: 20 Alcohol use details: HX ALCOHOL ABUSE Substance use: unknown Do You Feel Safe in your Home?: Yes Lack of Transportation: No Lack of Food: Never True Current Housing: I Have Housing Concerned About Future Housing: No Difficulty Paying Gas/Electric Bills: No Difficulty Paying for Meds: No Currently Unemployed: No Education: High School Diploma/GED Difficulty w/ Childcare or Family Care: No Living arrangements: snf Spiritual care concerns: No Meds Home Medications and Allergies Home Medications Medication Instructions Recorded Confirmed Type aspirin 81 mg tablet,delayed 81 mg PO DAILY 11/02/22 10/30/23 History release atorvastatin 80 mg tablet 80 mg PO DAILY 11/02/22 10/30/23 History acetaminophen 500 mg tablet 500 mg PO Q6H PRN Pain, Mild 09/29/23 10/30/23 History (Tylenol Extra Strength) bisacodyl 10 mg rectal suppository 10 mg RECTAL USEASDIRECTD PRN 09/29/23 11/05/23 History (Dulcolax (bisacodyl)) Constipation cholecalciferol (vitamin D3) 50 50 mcg PO DAILY 09/29/23 10/30/23 History mcg (2,000 unit) tablet docusate sodium 100 mg capsule 100 mg PO DAILY 09/29/23 10/30/23 History hydrochlorothiazide 25 mg tablet 25 mg PO DAILY 09/29/23 10/30/23 History magnesium hydroxide 400 mg/5 mL 30 mg PO USEASDIRECTD PRN 09/29/23 11/05/23 History oral suspension (Milk of Magnesia) Constipation menthol 4 % topical gel (Biofreeze 1 applic topical QID PRN discomfort 09/29/2310/29
[2023-11-05] MEDS: levoFLOXacin 500 MG/D5W 100 ML 500 MG/100 ML BAG 100 MG IVPB (17:48)
[2023-11-05] MEDS: metroNIDAZOLE 500 MG/ISO 100ML 500 MG/100 ML BAG 100 MG IVPB (17:48)
[2023-11-05 18:50] LABS: MRSA (PCR) NOT DETECTED (NOT DETECTE)
[2023-11-05] MEDS: IPRATROPIUM 0.5 MG/ALBUTEROL SULFATE 2.5 MG AMPUL.NEB 3 ML INHALATION (20:35)
[2023-11-05] MEDS: MINERAL OIL/WHITE PETROLATUM OINTMENT 1 APPLIC EACH EYE (20:58)
[2023-11-06] VITALS (36 sets, daily range): BP systolic 114–155; BP diastolic 52–68; PULSE 59–124; RESP 12–25; TEMP 36.7–37.3; O2SAT 10–100; BMI 22.1
[2023-11-06] MEDS: PROPOFOL IV EMULSION 100 ML 15.18 MG IV CONT (00:01)
[2023-11-06] MEDS: DEXTROSE 5%/0.9% SOD CHL 1,000 ML 75 ML IV CONT (00:45)
[2023-11-06] MEDS: POTASSIUM CHLORIDE INJ 40 MEQ in SODIUM CHLORIDE 0.9% IV 500 ML 130 MEQ IVPB (00:45)
--- NOTE | 2023-11-06 01:01 | PC.NURSE ---
[address] swartz about potassium 3.1 before lasix given and pt NPO with no fluids running. 40mEq potassium IVPB ordered as well as D5NS at 75.
[2023-11-06] MEDS: metroNIDAZOLE 500 MG/ISO 100ML 500 MG/100 ML BAG 100 MG IVPB ×2 (02:05→09:58)
[2023-11-06] MEDS: IPRATROPIUM 0.5 MG/ALBUTEROL SULFATE 2.5 MG AMPUL.NEB 3 ML INHALATION ×3 (02:42→13:42)
[2023-11-06 04:23] LABS: Basophils Percent Auto 0.2 % (0.2-1.2); Hematocrit 30.7 % (37.0-47.0); Hemoglobin 8.9 g/dL (12.0-15.0); Immature Granulocyte Absolute 0.05 K/mm3 (0.00-0.031); Immature Granulocyte Percent A 0.5 % (0-0.5); Lymphocytes Absolute Auto 1.14 K/mm3 (0.9-3.2); Lymphocytes Percent Auto 10.5 % (18.3-44.2); Mean Corpuscular Volume 82.7 fl (80-100); Mean Platelet Volume 10.5 fl (7.4-10.4); Monocytes Absolute Auto 0.6 K/mm3 (0.1-0.6); Monocytes Percent Auto 5.3 % (2.6-8.5); Neutrophils Absolute Auto 9.1 K/mm3 (1.3-6.7); Neutrophils Percent Auto 83.5 % (45.5-73.1); Platelet Count Result 410 k/mm3 (150-375); Red Blood Count 3.71 M/mm3 (4.2-5.4); White Blood Count 10.9 K/mm3 (4.5-10.0)
[2023-11-06 04:34] LABS: Prothrombin Time 13.3 Seconds (11.1-14.7)
[2023-11-06 04:35] LABS: Partial Thromboplastin Time 31.4 Seconds (22.3-36.8)
[2023-11-06 04:39] LABS: Alanine Aminotransferase 17 U/L (6-35); Albumin Level 3.3 g/dL (3.5-5.1); Alkaline Phosphatase 130 U/L (38-126); Anion Gap 6 mmol/L (4-12); Aspartate Amino Transferase 39 U/L (14-36); Bilirubin,Total 0.4 mg/dL (0.2-1.3); Blood Urea Nitrogen 23 mg/dL (7-17); Calcium 8.6 mg/dL (8.4-10.2); Carbon Dioxide 27 mmol/L (22-30); Chloride 101 mmol/L (98-107); Estimated CRCL calculation 48 ml/min; Estimated Glomerular Filt Rate > 60; Glucose 110 mg/dL (65-110); Magnesium 2.1 mg/dL (1.6-2.3); Potassium 3.9 mmol/L (3.4-5.0); Sodium 134 mmol/L (137-145)
[2023-11-06 04:59] LABS: Platelet Estimate Increased (Adequate)
[2023-11-06 05:00] LABS: Anisocytosis 1+; Burr Cells 2+; Hypochromasia 1+; Ovalocytes 1+
[2023-11-06 05:01] LABS: Acanthocytes 2+; Schistocytes Rare
[2023-11-06] MEDS: PROPOFOL IV EMULSION 100 ML 12.14 MG IV CONT (05:55)
[2023-11-06 06:15] LABS: Alveolar/Arterial O2 Gradient 75.1 mmHg; Base Excess ABG 3.4 mEq/l (+/-2.0); Carboxyhemoglobin 0.8 % THb (0-2.0); Fractional Inspired Oxygen 40 %; HCO3 ABG 28.1 mEq/l (22.0-26.0); Methemoglobin ABG 0.1 %THb (0-1.5); Oxygen Content ABG 19.1 %vol (16.0-22.0); Oxygen Saturation ABG 99.1 % (95.0-100.0); Oxyhemoglobin 98.5 % THb (90.0-100.0); PCO2 ABG 42.8 mmHg (35.0-45.0); PO2 ABG 160.9 mmHg (80.0-100.0); PO2 FiO2 Ratio Arterial Blood 4.02 %; Reduced Hemoglobin 0.6 %THb (0-5.0); Total Hemoglobin 13.6 g/dL (12.0-18.0); pH ABG 7.435 (7.350-7.450)
[2023-11-06 06:19] LABS: Arterial Blood Gas Vent Mode CMV; Arterial Blood Gas Ventilator rate 18 /MIN; Device VENTILATOR; Modified Allen's Test Pass; Site Drawn RIGHT RADIAL
[2023-11-06 06:20] LABS: Arterial Blood Gas PEEP 5 cmH2O; Arterial Blood Gas Tidal Volume 350 ml
[2023-11-06] MEDS: MINERAL OIL/WHITE PETROLATUM OINTMENT 1 APPLIC EACH EYE (08:28)
[2023-11-06] MEDS: PANTOPRAZOLE SODIUM IV 40 MG VIAL IV PUSH (08:28)
[2023-11-06 09:11] LABS: Iron 62 ug/dL (37-170)
[2023-11-06 09:22] LABS: Percent Iron Saturation 30 % (20-50)
--- NOTE | 2023-11-06 09:35 | WPDINTPN ---
Progress Note: A&P Assessment and Plan (1) Acute respiratory failure: Code(s): J96.00 - Acute respiratory failure, unspecified whether with hypoxia or hypercapnia Status: Acute Assessment and Plan: Acute respiratory failure likely related to stridor, aspiration of blood in the airway, impending respiratory failure requiring intubation 11/04: Intubated by anesthesiologist in the PACU, he stated was a difficult intubation as the blood from the mass in the airway was obscuring the anatomy. He tried initially with a glide scope, was unsuccessful. He then tried with a MAC 4 blade was able to get a size 6.5 ETT -currently on CMV mode of ventilation, of 5, 40% FiO2. -chest x-ray and ABGs reviewed, wean FiO2 -continue bronchodilators -continue propofol for sedation maintain RASS is -2 (2) Aspiration into airway: Code(s): T17.908A - Unspecified foreign body in respiratory tract, part unspecified causing other injury, initial encounter Status: Acute Assessment and Plan: Likely aspiration of blood into the airway causing shortness of breath and requiring intubation -continue management as above (3) Supraglottic mass: Code(s): J38.7 - Other diseases of larynx Status: Acute Assessment and Plan: There was a friable mass in the airway which was bleeding. She has had a known mass in her oral cavity for which she had declined workup in the past. It was 1st diagnosed when she had a stroke and was admitted at [facility]. Later she was seen by ENT as an outpatient where she declined further evaluation and laryngoscopy.. 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 Patient seen by ENT and recommend tracheostomy -PT/INR, PTT within normal limits (4) HCC (hepatocellular carcinoma): Code(s): C22.0 - Liver cell carcinoma Status: Acute Assessment and Plan: History of hepatocellular carcinoma, is being followed by Dr. Nath -patient had a Port-A-Cath placed today on 11/05/2023 so that she could start chemotherapy (5) Admission for fitting of Port-A-Cath: Code(s): Z45.2 - Encounter for adjustment and management of vascular access device Status: Acute Assessment and Plan: 11/05/2023: Port-A-Cath was placed by surgery Plan DVT prophylaxis: SCDs, no prophylaxis secondary to bleeding and friable mass in the airway Stress ulcer prophylaxis: Protonix Nutrition: NPO for now. No OG/NG tube for now as patient has a bleeding and friable mass in the airway and pharynx I spoke to patient's sister who is also patient's POA - Kalie Dixon by phone. She states she is unable to get to the hospital because she has rheumatoid arthritis and will need help. She states that she is aware that the patient is in [facility]ci. She is also fair the patient had a mass in throat diagnosed and she did not want any evaluation and treatment done for it. She told me the patient has been resistant in seeking any medical care and has been at the [facility] since her stroke. She states that patient has had poor quality of life over last 6 months. I discussed patient's current status including hepatocellular carcinoma, the oral mass which is most likely a carcinoma. I discussed 2 options of moving forward as to either proceeding with tracheostomy and PEG tube placement at this time and further evaluation of the pharyngeal mass in future or option of hospice and comfort care with palliative extubation. She states the patient never wanted a tracheostomy or PEG tube placement. Patient wished to be DNR and did not want any aggressive evaluation or treatment for any of her medical problems. She is going to confirm this with her . I also discussed with patient's primary physician Dr. Elizondo. She told me that they have 2 to additional siblings but they are not in contact with Jaleesa and do not want to be involved. Code Status: Full co
--- NOTE | 2023-11-06 10:14 | PCFNICU ---
ICU Rounding Note: Pt current nutrition is NPO. Nutrition recommendation: Vital AF 1.2 at 40 ml/hr goal rate at this time. Last recorded weight is 56.8 kg. Bowel Motility: +BM reported 11/05 Labs Reviewed:BUN 23, NA 134, Hct 30.7,Hgb 8.9,Alb 3.3 Meds Noted:Propofol 25 clxr=442 kcal, Flagyl, Protonix Skin: WNL Additional Notes: Patient is current with mechanical vent. During ICU rounds, discussions for possible comfort care. No nutrition today. Following daily in ICU rounds.
--- NOTE | 2023-11-06 11:30 | PDONCCN ---
HPI - Date of Consult Date/Time: 11/06/23 17:54 <Praveen Nath - 11/06/23 17:59> 11/06/23 11:30 <Yudith Ruiz - 11/06/23 11:35> Requesting Physician: Darinel Elizondo MD <Praveen Nath - 11/06/23 17:59> Darinel Elizondo MD <Yudith Ruiz - 11/06/23 11:35> Primary Care Provider: Jeremías Moreno MD <Praveen Nath - 11/06/23 17:59> Jeremías Moreno MD <Yudith Ruiz - 11/06/23 11:35> - Consult Narrative Reason for consult: Larynx mass <Yudith Ruiz - 11/06/23 11:35> Narrative: Jaleesa Powell is a 78 year old female <Praveen Nath - 11/06/23 17:59> Jaleesa Powell is a 78 year old female with a past medical history of HTN, smoking, stroke in 2022. She resides in a longterm and has been recently diagnosed with hepatocellular carcinoma on September 30. She has a history of heavy alcohol use in the past. She was admitted to the hospital after a PORT placement for chemotherapy which went smoothly until she was getting ready to be discharged as she was found suddenly to have shortness of breath and coughing up blood. She was emergency intubated and found to have a larynx/pharynx friable bleeding mass. This was seen on previous work ups and patient has declined all treatment in the past for this. Patient is currently intubated and all information was found via chart review. <Yudith Ruiz - 11/06/23 11:35> Review of Systems - Review of Systems unobtainable due to endotracheal tube, unobtainable due to medical condition <Yudith Ruiz 11/06/23 11:38> [facility] Medical History: Medical History (Last Updated 11/05/23 @ 19:46 by Dior Núñez PA-C) Cerebrovascular accident Dupuytrens contracture Hepatocellular carcinoma Hypertension Mass of oral cavity Smoker <Praveen Nath - 11/06/23 17:59> Medical History (Last Updated 11/05/23 @ 19:46 by Dior Núñez PA-C) Cerebrovascular accident Dupuytrens contracture Hepatocellular carcinoma Hypertension Mass of oral cavity Smoker <Yudith Ruiz - 11/06/23 11:35> Surgical History: Surgical History (Last Reviewed 11/05/23 @ 19:39 by Dior Núñez PA-C) History of arthroplasty of right knee History of bilateral carpal tunnel release History of elbow surgery History of wisdom tooth extraction <Praveen Nath - 11/06/23 17:59> Surgical History (Last Reviewed 11/05/23 @ 19:39 by Dior Núñez PA-C) History of arthroplasty of right knee History of bilateral carpal tunnel release History of elbow surgery History of wisdom tooth extraction <Yudith Ruiz - 11/06/23 11:35> Family History: Family History (Last Reviewed 11/05/23 @ 19:39 by Dior Núñez PA-C) Father Acute myocardial infarction <Praveen Nath - 11/06/23 17:59> Family History (Last Reviewed 11/05/23 @ 19:39 by Dior Núñez PA-C) Father Acute myocardial infarction <Yudith Ruiz - 11/06/23 11:35> - Social History Social History: Social History (Last Updated 11/05/23 @ 19:40 by Dior Núñez PA-C) Alcohol Use: Alcohol intake: former Drinks per week: 20 Alcohol use details: HX ALCOHOL ABUSE Substance Use: Substance use: unknown Others: Spiritual care concerns: No Living Arrangements: Living arrangements: longterm Smoking Status: Smoking status: Current every day smoker Smoking Pack-years: Smoking packs per day: 1 Smoking cigarettes per day: 20.0 Years smoked: 55 Smoking pack-years: 55.00 Social Determinants of Health: Do You Feel Safe in your Home?: Yes Has the Lack of Transportation Kept You From Medical Appointments or From Getting Medications?: No Within the Past 12 Months, Were You Worried Whether Your Food Would Run Out Before You Got Money to Buy More?: Never True What is Your Housing Situation
[2023-11-06 12:11] LABS: Folic Acid 8.1 ng/mL (2.76->20)
--- NOTE | 2023-11-06 12:28 | PM.PNGS ---
Progress Note: A&P Assessment and Plan (1) Admission for fitting of Port-A-Cath: Code(s): Z45.2 - Encounter for adjustment and management of vascular access device Status: Acute Assessment and Plan: S/p jaziel cath placement by Dr. Elizondo. No acute surgical issues. (2) Supraglottic mass: Code(s): J38.7 - Other diseases of larynx Status: Acute Assessment and Plan: Appreciate ENT recommendations. I spoke with the patient's sister/POA over the phone this morning. Patient's sister/POA wishes to make her comfort measures as she believes the patient would not want any further procedures or workup done regarding the mass. The patient has known about the mass for some time and has refused any procedures or workup from ENT in the past. The patient's sister/POA reports the patient would not want a tracheostomy or any feeding tubes. She has a poor quality of life in the correction s/p CVA and her POA would like to proceed with comfort care/hospice at this time. Discussed all of this also with Dr. Elizondo, who agrees with proceeding with comfort care today per the POA's request. (3) Acute respiratory failure: Code(s): J96.00 - Acute respiratory failure, unspecified whether with hypoxia or hypercapnia Status: Acute Assessment and Plan: Discussed case with Law Enforcement Instructor who will proceed with comfort care/withdrawal of care today per POA's request. Plan I have discussed the patient's case and plan of care with Dr. Elizondo. Subjective Subjective Date/Time Seen: 11/06/23 12:28 Interval history: Patient intubated and sedated in the ICU. She is a 78 yo with history of CVA and multiple medical problems who resides in a correction. Patient had jaziel catheter placement by Dr. Elizondo yesterday as an outpatient. She has known hepatocellular carcinoma. She had no issues during the procedure. Postprocedure chest x-ray showed no evidence of pneumothorax. She was apparently getting dressed and had stridorous breathing with rapid decompensation. She had respiratory failure and was intubated by Anesthesia in the postoperative recovery area. She was then admitted for respiratory failure to the ICU. She was noted to have a mass in the pharynx and ENT was consulted. I spoke with the qa reviewer today and her sister, les POA. Per her sister/POA, the patient did not want to be intubated, would not want a tracheostomy, and would not want a feeding tube. All of these things were discussed with the sister earlier today by the qa reviewer as well. The patient's sister wishes to extubate and make the patient comfort care based off of her sister's wishes. The POA is also unable to drive and does not have a way to make it up to the hospital today. She still wishes to proceed with withdrawal of care/comfort care today, knowing that the patient may without her making to the hospital. Exam Const: General: ill appearing and patient obtunded Neck: Other: Incisions dry and glue intact, no drainage or erythema. No swelling. Resp: Effort & Inspection: other (intubated on ventilator) Auscultation: clear to auscultation bilaterally Neuro: General: other ( unable to perform full neuro exam due to intubation and sedation) Psych: Insight: Limited insight present (Psych) Judgement: Limited judgement present (Psych) Objective Data Vital Signs Vital Signs: Vital Signs - 24 hr 11/05/23 12:35 11/05/23 12:40 11/05/23 12:50 Temperature Pulse Rate 138 H 122 H 122 H Respiratory Rate 23 H 20 14 Blood Pressure 187/113 H 190/107 H 169/75 H Pulse Oximetry 90 90 99 Oxygen Delivery Simple Face Mask Non-Rebreather Mask Bag Valve Mask Oxygen Flow Rate 10 15 15 Fraction of Inspired Oxygen 11/05/23 12:55 11/05/23 13:00 11/05/23 13:05 Temperature Pulse Rate 110 H 110 H 101 H Respiratory Rate 20 24 H 11 L Blood Pressure 146/71 H 147/77 H 88/60 L Pulse Oximetry 100 100 100 Oxygen Delivery Bag Valve Ma
--- NOTE | 2023-11-06 13:57 | PM.IMCN ---
Assessment and Plan Assessment and plan (1) Hepatocellular carcinoma: Code(s): C22.0 - Liver cell carcinoma Status: Acute (2) Supraglottic mass: Code(s): J38.7 - Other diseases of larynx Status: Acute (3) Acute respiratory failure: Code(s): J96.00 - Acute respiratory failure, unspecified whether with hypoxia or hypercapnia Status: Acute Plan Hospitalist consulted for medical management in this patient who arrived for a elective Port-A-Cath placement which was uneventful. Shortly after she became short of breath and was reintubated with difficulty. It is reported after further discussion with the manager wind the power of machine printer has asked hospice to be consulted and palliative extubation done shortly after. She reports the patient would not want trach or PEG tube. The supraglottic mass is known and the patient had previously declined further workup or treatment. No further recommendations except to provide comfort care measures per the manager wind and hospice consultants. HPI Date of Consult Consult date: 11/06/23 Requesting Physician: Darinel Elizondo MD Primary Care Provider: Jeremías Moreno MD Consult Narrative Reason for consult: Medical management Narrative: Jaleesa Powell is a 78 year old female with past medical history CVA, hypertension, recent diagnosis of hepatic cellular carcinoma who presented from the long term for placement of a Port-A-Cath. Preprocedure the patient was intubated and noted to have a john pharyngeal mass but was intubated and the Port-A-Cath placement was uneventful. While in the PACU the patient became short of breath. She developed stridor began to cough up bright red blood. The patient was again intubated. This time it was difficult. These events happen on 11/04. The patient was seen by me on 11/05. Review of Systems Review of Systems: All systems reviewed & are unremarkable except as noted in HPI and below (Subjective) ROS unobtainable: Yes unobtainable due to endotracheal tube and unobtainable due to medical condition PMFSH Past Medical History Medical History Cerebrovascular accident Dupuytrens contracture Hepatocellular carcinoma Hypertension Mass of oral cavity Smoker Surgical History Surgical History (Updated 11/06/23 @ 11:35 by Yudith Ruiz APRN) History of arthroplasty of right knee History of bilateral carpal tunnel release History of elbow surgery History of wisdom tooth extraction Family History Family History Father Acute myocardial infarction Social History Social History (Updated 11/05/23 @ 19:40 by Dior Núñez PA-C) Social History: The patient is . The patient continues to smoke at least a pack or more of cigarettes a day. The patient states that she drinks a case of beer a week. She denies any marijuana or illicit drugs. 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 The patient lives home alone and does not have any children. Code status full code Smoking packs per day: 1 Smoking cigarettes per day: 20.0 Years smoked: 55 Smoking pack-years: 55.00 Smoking status: Current every day smoker Alcohol intake: former Drinks per week: 20 Alcohol use details: HX ALCOHOL ABUSE Substance use: unknown Do You Feel Safe in your Home?: Yes Lack of Transportation: No Lack of Food: Never True Current Housing: I Have Housing Concerned About Future Housing: No Difficulty Paying Gas/Electric Bills: No Difficulty Paying for Meds: No Currently Unemployed: No Education: High School Diploma/GED Difficulty w/ Childcare or Family Care: No Living arrangements: long term Spiritual care concerns: No Meds Home Medications and Allergies Home Medications Medication Instructions Recorded Confirmed Type aspirin 81 mg tablet,delayed 81 mg PO DAILY 11/02/2210/29/
--- NOTE | 2023-11-06 14:11 | P.PNCROSS_ITS ---
Event Note Event Note Event Note: Spoke to General surgery nurse practitioner Christen regarding my discussion with patient's sister by phone. She discuss case with Dr. Khan and also spoke to patient's sister again by phone and confirmed goals of care. Patient's sister wants her palliatively extubated and comfort measures instituted and does not want any further aggressive evaluation or treatment for hepatocellular carcinoma and or pharyngeal mass which is suspected to be squamous cell carcinoma as patient had in the past discussed her wishes of not receiving any treatment for it. Patient's sister wants hospice to be consulted and managed the patient once patient extubated so that patient does not ' suffer' any further and wants her to in peace and dignity.. I have discussed with customer care manager. Hospitalist has seen the patient. Waiting for hospice service to evaluate patient and take over management. Once that is in place will palliatively extubate patient in start comfort measures in the hospital. Total time spent in advance care planning 35 minutes which included speaking to patient sister by phone, discussed with general surgery multiple times, discussed with customer care manager, coordinating care.
[2023-11-06] MEDS: MORPHINE SULFATE INJ (*CRX) 10 MG/ML AMP 5 MG IV PUSH (15:26)
[2023-11-06] MEDS: LORazepam INJ (*CRX) 2 MG/ML VIAL IV PUSH ×2 (15:27→20:53)
[2023-11-06] MEDS: ATROPINE SULFATE 1% OPHTH SOLN 5 ML BOTTLE SUBLINGUAL (20:04)
[2023-11-06] MEDS: MORPHINE SULFATE (*CRX) 2 MG/ML INJ 4 MG IV PUSH (20:54)
[2023-11-07 07:47] VITALS: BP 145/74; PULSE 87; RESP 12; TEMP 37.7; O2SAT 84
[2023-11-07] MEDS: MORPHINE SULFATE (*CRX) 2 MG/ML INJ 4 MG IV PUSH ×9 (07:55→15:22)
[2023-11-07] MEDS: LORazepam INJ (*CRX) 2 MG/ML VIAL IV PUSH ×6 (07:55→15:22)
[2023-11-07] MEDS: MINERAL OIL/WHITE PETROLATUM OINTMENT 1 APPLIC EACH EYE ×2 (07:56→20:09)
[2023-11-07 13:32] VITALS: TEMP 37.7
--- NOTE | 2023-11-07 13:53 | PM.IMPN ---
Progress Note: A&P Assessment and Plan (1) Hepatocellular carcinoma: Code(s): C22.0 - Liver cell carcinoma Status: Acute (2) Supraglottic mass: Code(s): J38.7 - Other diseases of larynx Status: Acute (3) Acute respiratory failure: Code(s): J96.00 - Acute respiratory failure, unspecified whether with hypoxia or hypercapnia Status: Acute Plan Hospitalist consulted for medical management in this patient who arrived for a elective Port-A-Cath placement which was uneventful. Shortly after she became short of breath and was reintubated with difficulty. It is reported after further discussion with the supervisor order takers the power of employment attorney has asked hospice to be consulted and palliative extubation done shortly after. She reports the patient would not want trach or PEG tube. The supraglottic mass is known and the patient had previously declined further workup or treatment. Continue comfort measures. She has atrpoine drops for secretions. Hospice consulted. Subjective Date/time seen: 11/07/23 13:53 Interval history: 78yo female with CVA, HTN and recent diagnosis of hepatocellular carcinoma here for Port-A-Cath placement. Consulted for medical management after she developed respiratory failure requiring re-intubation after the procedure. Assuming care. Chart reviewed. Patient poorly responsive. She has been extubated. Exam Narrative: Tm 100 145/74 87 12 94% ra Gen - NARD, appears comfortable Chest - Coarse expiratory breath sounds CV - RRR S1/S2 Abd - Soft - Garza secured draining clear yellow urine Ext - No pedal edema Neuro - poorly responsive Skin - Warm and dry Objective Data Vital Signs Vital Signs: Vital Signs - 24 hr 11/06/23 14:00 11/06/23 14:00 11/06/23 13:55 Temperature 98.1 F Pulse Rate 66 66 72 Respiratory Rate 15 20 Blood Pressure 118/52 L Pulse Oximetry 97 Oxygen Delivery 11/06/23 14:30 11/06/23 15:30 11/06/23 20:00 Temperature 98.0 F Pulse Rate 64 74 124 H Respiratory Rate 21 H 18 12 Blood Pressure 155/68 H Pulse Oximetry 10 L Oxygen Delivery 11/06/23 20:00 11/07/23 07:47 11/07/23 08:00 Temperature 100 F H Pulse Rate 87 Respiratory Rate 12 Blood Pressure 145/74 H Pulse Oximetry 84 L Oxygen Delivery Room Air Room Air 11/07/23 13:32 Temperature 100 F H Pulse Rate Respiratory Rate Blood Pressure Pulse Oximetry Oxygen Delivery Intake/Output Intake/Output: Intake & Output 11/04/23 11/05/23 11/06/23 11/07/23 23:59 23:59 23:59 23:59 Intake Total 781.9 1581.7 0 Output Total 400 675 725 Balance 381.9 906.7 -725 Meds/Results Medications: Active Medications Generic Name Dose Route Start Last Admin Trade Name Freq PRN Reason Stop Dose Admin Atropine Sulfate 1 - 2 drop 11/06/23 15:09 11/06/23 20:04 Atropine Sulfate 1% Ophth Soln 5 Ml Bottle SUBLINGUAL 2 drop Q4H PRN Administration Secretions Lorazepam 2 mg 11/06/23 15:09 11/07/23 12:23 Lorazepam Inj (*Crx) 2 Mg/Ml Vial IV PUSH 2 mg Q1H PRN Administration Anxiety/Comfort Morphine Sulfate 4 mg 11/06/23 15:09 11/07/23 12:53 Morphine Sulfate (*Crx) 2 Mg/Ml Inj IV PUSH 4 mg Q30M PRN Administration COMFORT Multi-Ingred Cream/Lotion/Oil/Oint 1 applic 11/05/23 21:00 11/07/23 07:56 Mineral Oil/White Petrolatum Ointment EACH EYE 1 applic Q12HR MCKENNA Administration Radiology Results: ITS Impressions Central Venous Line 11/05/23 11:00 IMPRESSION: 1. Catheter tip in superior vena cava. Soft Tissue Neck CT 11/05/23 15:52 IMPRESSION: 1. 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 Chest X-Ray 11/06/23 06:07 Impression: Support tubes, as above. Clear lungs.
--- NOTE | 2023-11-07 14:29 | PM.PNGS ---
Progress Note: A&P Assessment and Plan (1) Supraglottic mass: Code(s): J38.7 - Other diseases of larynx Status: Acute Assessment and Plan: Patient now comfort care. Hospice consulted. (2) Acute respiratory failure: Code(s): J96.00 - Acute respiratory failure, unspecified whether with hypoxia or hypercapnia Status: Acute Assessment and Plan: Patient extubated yesterday and now on comfort care. Hospice consulted. (3) Admission for fitting of Port-A-Cath: Code(s): Z45.2 - Encounter for adjustment and management of vascular access device Status: Acute Assessment and Plan: No acute issues. Currently on comfort care. Plan I have discussed the patient's case and plan of care with Dr. Elizondo. Subjective Subjective Date/Time Seen: 11/07/23 14:29 Interval history: Patient in the ICU on comfort care. She is obtunded and does not open eyes or follow any commands. Nursing reports giving Ativan and morphine as needed for comfort. Exam Const: General: ill appearing Orientation/consciousness: patient obtunded Chest: Other: Right chest port in place with incision clean, dry, and glue intact. No swelling, minimal ecchymosis noted. Resp: Effort & Inspection: labored and tachypneic Objective Data Vital Signs Vital Signs: Vital Signs - 24 hr 11/06/23 14:30 11/06/23 15:30 11/06/23 20:00 Temperature 98.0 F Pulse Rate 64 74 124 H Respiratory Rate 21 H 18 12 Blood Pressure 155/68 H Pulse Oximetry 10 L Oxygen Delivery 11/06/23 20:00 11/07/23 07:47 11/07/23 08:00 Temperature 100 F H Pulse Rate 87 Respiratory Rate 12 Blood Pressure 145/74 H Pulse Oximetry 84 L Oxygen Delivery Room Air Room Air 11/07/23 13:32 Temperature 100 F H Pulse Rate Respiratory Rate Blood Pressure Pulse Oximetry Oxygen Delivery Intake/Output Intake/Output: Intake & Output 11/04/23 11/05/23 11/06/23 11/07/23 23:59 23:59 23:59 23:59 Intake Total 781.9 1581.7 0 Output Total 400 675 725 Balance 381.9 906.7 -725 Meds/Results Medications: Active Medications Generic Name Dose Route Start Last Admin Trade Name Freq PRN Reason Stop Dose Admin Atropine Sulfate 1 - 2 drop 11/06/23 15:09 11/06/23 20:04 Atropine Sulfate 1% Ophth Soln 5 Ml Bottle SUBLINGUAL 2 drop Q4H PRN Administration Secretions Lorazepam 2 mg 11/06/23 15:09 11/07/23 13:52 Lorazepam Inj (*Crx) 2 Mg/Ml Vial IV PUSH 2 mg Q1H PRN Administration Anxiety/Comfort Morphine Sulfate 4 mg 11/06/23 15:09 11/07/23 14:28 Morphine Sulfate (*Crx) 2 Mg/Ml Inj IV PUSH 4 mg Q30M PRN Administration COMFORT Multi-Ingred Cream/Lotion/Oil/Oint 1 applic 11/05/23 21:00 11/07/23 07:56 Mineral Oil/White Petrolatum Ointment EACH EYE 1 applic Q12HR MCKENNA Administration Radiology Results: ITS Impressions Central Venous Line 11/05/23 11:00 IMPRESSION: 1. Catheter tip in superior vena cava. Soft Tissue Neck CT 11/05/23 15:52 IMPRESSION: 1. 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 Chest X-Ray 11/06/23 06:07 Impression: Support tubes, as above. Clear lungs.
--- NOTE | 2023-11-07 16:25 | PC.NURSE ---
pt transferred in to room 259 via bed, reviewed plan of care, pt resting comfortably at this time
[2023-11-07] MEDS: ATROPINE SULFATE 1% OPHTH SOLN 5 ML BOTTLE SUBLINGUAL ×2 (17:27→22:30)
[2023-11-07 20:00] VITALS: BP 115/55; PULSE 102; RESP 14; TEMP 37.7; O2SAT 75; O2SAT 84
[2023-11-07 20:50] VITALS: PULSE 102; RESP 14; O2SAT 90
--- NOTE | 2023-11-08 00:35 | PC.NURSE ---
PT AT 2344. CONFIRMED BY SECOND RN CHARISSA LONGORIA
[2023-11-10 10:53] LABS: Methylmalonic Acid 548 nmol/L (87-318)
[2023-11-14 13:28] LABS: Soluble Transferrin Receptor 0.92 mg/L (0.76-1.76)
--- NOTE | 2023-11-26 16:04 | PM.DS ---
DS: Admitting Diagnosis Discharge Date 11/07/23 Admitting Diagnosis Acute respiratory failure, hepatocellular carcinoma, oropharyngeal neoplasm. DS: Summary Hospital Course Hospital Course: Patient is a 38-year-old female who was diagnosed with hepatocellular carcinoma. She was undergo chemotherapy treatments. Apparently unknown at the initial time I have admission to the hospital for placement of jaziel catheter patient had a or pharyngeal neoplasm which was initially worked up at [facility] but she was lost to follow-up. She was seen by the oncologist as an outpatient and it was requested that she have a jaziel catheter placed for chemotherapy. On the day of admission to the hospital she presented [facility] where she underwent uncomplicated placement of a jaziel catheter. Postprocedure there was no evidence of pneumothorax. She went to the outpatient surgery area where she recovered well and then as she was getting dressed to get into the wheelchair to leave the hospital she started having stridor and respiratory distress. She was immediately taken back to the recovery room where she was emergently intubated as her respiratory status seemed to further decline. After she was intubated and stabilized from 0 start standpoint she was then transferred to the intensive care unit where her care was assumed by the respiratory tech. She was kept on the ventilator with aggressive maximal supportive management. 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 Subsequently the patient's of sister made the patient comfort care there is only and the patient was terminally extubated. Was not present for the calling of time of . Status at Discharge Overall status at discharge: other (Patient was terminally extubated) Time Spent with Patient Time attestation: Total time spent providing and/or coordinating discharge services: Discharge Plan Discharge Attending physician on discharge: Darinel Elizondo Consulting providers: Patti Muse; George Putnam; Praveen Nath; Yudith Ruiz; Kriss Birch; Dior Núñez; Cachorro Arriola; Tato Andrade; Ravi Swanson; Dave Cornejo V.; Savita Patel; Hector Gaines; Darinel Elizondo Discharging Clinician: Darinel Elizondo Patient Disposition: Activity: other - see discharge instructions Wound Care Instructions: other - see discharge instructions Discharge Instructions: Discharge patient home when stable. May remove dressing in 24 hr and then shower. No soaking incision under water x2 weeks. Protect surgical site from any trauma. Follow-up Dr. Elizondo only as needed. Resume home medications. May use Tylenol and/or ibuprofen for pain. Stand Alone Forms: General Discharge Instructions Follow-up/Referrals: Darinel Elizondo MD [Physician] - (Follow-up with Dr. Elizondo only on a p.r.n. basis) Discharge Medications: Discontinued aspirin 81 mg tablet,delayed release (DR/EC) 81 mg PO DAILY atorvastatin 80 mg tablet 80 mg PO DAILY acetaminophen [Tylenol Extra Strength] 500 mg Tablet 500 mg PO Q6H PRN (Reason: Pain, Mild) bisacodyl [Dulcolax (bisacodyl)] 10 mg Suppository 10 mg RECTAL USEASDIRECTD PRN (Reason: Constipation) Rx Instructions: 1 suppository rectally as needed for constipation daily in no results from [facility] Fleet Enema 19-7 gram/118 mL Enema See Rx Instructions .ROUTE .COMPLEX PRN (Reason: Constipation) Rx Instructions: insert 1 application rectally as needed for constipation if no results 1 day after suppository docusate sodium 100 mg Capsule 100 mg PO DAILY hydrochlorothiazide 25 mg Tablet 25 mg PO
== END 2023-11-07 23:45 | disposition expired | DRG 166 ==
LOC: ANHICU 14:02 → ANH2MED 11-08 00:34 → ANHICU 11-08 16:00
PROVIDERS: Internal Medicine; Nurse Practitioner Family; Physician Assistant; Surgery; Admitting Provider Internal Medicine; PCP Family Medicine; Visit Provider Internal Medicine
PROC: 0JH60WZ Insertion of Totally Implantable Vascular Access Device into Chest Subcutaneous Tissue and Fascia, Open Approach (ICD-10-PCS; principal; 2023-11-05 09:30)
DX: T17.898A Other foreign object in other parts of respiratory tract causing other injury, initial encounter (principal); J96.00 Acute respiratory failure, unspecified whether with hypoxia or hypercapnia; C22.0 Liver cell carcinoma; I10 Essential (primary) hypertension; J39.2 Other diseases of pharynx; J38.7 Other diseases of larynx; M72.0 Palmar fascial fibromatosis [Dupuytren]; F43.10 Post-traumatic stress disorder, unspecified; F17.210 Nicotine dependence, cigarettes, uncomplicated; Z96.651 Presence of right artificial knee joint; Z86.73 Personal history of transient ischemic attack (TIA), and cerebral infarction without residual deficits; Z79.82 Long term (current) use of aspirin
CPT/HCPCS: 31500; 36415; 36600; 70491; 71045; 77001; 80053; 81001; 82375; 82607; 82728; 82746; 82805; 83050; 83540; 83550; 83605; 83735; 83921; 84100; 84238; 84478; 85025; 85380; 85384; 85610; 85730; 87040; 87077; 87086; 87088; 87186; 87641; 94003; 94640; A9270; C1788; C9113; J0690; J1100; J1644; J1836; J1940; J1956; J2060; J2270; J2405; J2704; J3010; J3480; J7030; J7040; J7042; J7120; Q9967